=== PATIENT | female | born 1960 | race American Indian/Alaskan Native ===

== ENCOUNTER 2017-09-02 21:44 | Emergency (ER) | payer MEDICAID ==
[2017-09-02 22:03] VITALS: BMI 34.5
[2017-09-02 22:10] VITALS: TEMP 98.4
[2017-09-02] MEDS ORDERED: Oxycodone/Acetaminophen 5/325 mg Tab PO STA (22:23)
--- NOTE | 2017-09-02 22:26 | ED PDOC ---
Arrival/HPI - General Chief Complaint: Lower Extremity Problem/Injury Time Seen by Provider: 09/02/17 22:21 Historian: Patient - History of Present Illness Narrative History of Present Illness (Text): 09/02/17 22:25 56 year old female, post menopausal, pmh including htn, nkda, complaining of lt. foot swelling x 3 days with no fall or trauma. Aching pain, aggravated by touching, no calf pain, no thigh pain, no fever or chills, no palpitation, no rash, no other medical or psychological complaints. Past Medical History - Provider Review Nursing Documentation Reviewed: Yes - Infectious Disease Hx of Infectious Diseases: None - Cardiac Hx Cardiac Disorders: Yes Hx Hypertension: Yes - Pulmonary Hx Respiratory Disorders: Yes Hx Asthma: Yes Hx Pneumonia: Yes Other/Comment: Smoking - Neurological Hx Neurological Disorder: No - HEENT Hx HEENT Disorder: No - Renal Hx Renal Disorder: No - Endocrine/Metabolic Hx Endocrine Disorders: No - Hematological/Oncological Hx Blood Disorders: Yes Hx Hepatitis C: Yes - Integumentary Hx Dermatological Disorder: No - Musculoskeletal/Rheumatological Hx Musculoskeletal Disorders: No Hx Falls: No - Gastrointestinal Hx Gastrointestinal Disorders: No - Genitourinary/Gynecological Hx Genitourinary Disorders: No - Psychiatric Hx Psychophysiologic Disorder: No Hx Substance Use: No - Surgical History Hx Section: Yes Other/Comment: skin graft r shoulder as a child - Anesthesia Hx Anesthesia: Yes Hx Anesthesia Reactions: No Hx Malignant Hyperthermia: No - Suicidal Assessment Feels Threatened In Home Enviroment: No Family/Social History - Physician Review Nursing Documentation Reviewed: Yes Family/Social History: Unknown Family HX Smoking Status: Heavy Smoker > 10 Cigarettes Daily Hx Alcohol Use: No Hx Substance Use: No Allergies/Home Meds Allergies/Adverse Reactions: Allergies No Known Allergies Allergy (Verified 07/09/16 08:29) Home Medications: Home Meds Medication Instructions Recorded Confirmed amLODIPine [Norvasc] 5 mg PO DAILY 12/23/15 07/09/16 Review of Systems - Review of Systems Constitutional: absent: Fatigue, Fevers Eyes: absent: Vision Changes ENT: absent: Hearing Changes Respiratory: absent: SOB, Cough Cardiovascular: absent: Chest Pain Gastrointestinal: absent: Abdominal Pain, Nausea, Vomiting Musculoskeletal: Arthralgias, Myalgias. absent: Back Pain, Neck Pain, Joint Swelling Skin: absent: Rash, Pruritis Neurological: absent: Headache, Dizziness Psychiatric: absent: Anxiety, Depression, Suicidal Ideation Physical Exam Vital Signs Reviewed: Yes Vital Signs Temp Pulse Resp BP Pulse Ox 09/02/17 23:40 88 16 148/82 99 09/02/17 22:03 98.4 F 70 18 152/95 H 96 Temperature: Afebrile Blood Pressure: Hypertensive Pulse: Regular Respiratory Rate: Normal Appearance: Positive for: Well-Appearing, Non-Toxic, Comfortable Pain Distress: Moderate Mental Status: Positive for: Alert and Oriented X 3 - Systems Exam Head: Present: Atraumatic, Normocephalic Pupils: Present: PERRL Extroacular Muscles: Present: EOMI Conjunctiva: Present: Normal Mouth: Present: Moist Mucous Membranes Neck: Present: Normal Range of Motion Respiratory/Chest: Present: Clear to Auscultation, Good Air Exchange. No: Respiratory Distress, Accessory Muscle Use Cardiovascular: Present: Regular Rate and Rhythm, Normal S1, S2. No: Murmurs Abdomen: No: Tenderness, Distention, Peritoneal Signs, Rebound, Guarding Back: Present: Normal Inspection Upper Extremity: Present: Normal Inspection. No: Cyanosis, Edema Lower Extremity: Present: Normal Inspection, Other (Lt. foot: +ttp and mild swelling on the dorsum foot extensor tendon regin, no ankle tenderness, negative marjorie and ledesma signs, FROM without limtiation, sensation intact, motor 5/5, +DPPT pulses, capillary refill<2 seconds, neurovascular intact. ). No: Edema Neurological: Present: GCS=15, CN II-XII Intact, Speech Normal Skin: Present: Warm, Dry, Normal Color. No: Rashes Psychiatric: Present: Alert, Oriented x 3, Normal Insight, Normal Concentration Medical Decision Making ED Course and Treatment: 09/02/17 22:27 -labs -lt. foot xray -motrin 09/02/17 23:11 -Labs are non-significant -Lt. foot xray show -Pt. feels -Discharge home with naproxen, crutches, jignesh wrap, avoid putting on the shoe for 7 days, follow up with your own pmd and inspector fuel hose within 2 days, return to the ER for any new or worsening signs or symptoms. - Lab Interpretations Lab Results: 09/02/17 22:42 09/02/17 22:42 Lab Results 09/02/17 22:42: WBC 10.7 D, RBC 4.66, Hgb 11.2 L, Hct 34.1 L, MCV 73.2 L, MCH 24.0 L, MCHC 32.8, RDW 14.2, Plt Count 280, MPV 9.8, Gran % 46.8 L, Lymph % ( Auto) 41.2 H, [place] % (Auto) 7.5 H, Eos % (Auto) 3.7, Baso % (Auto) 0.8, Gran # 5.00, Lymph # (Auto) 4.4 H, [place] # (Auto) 0.8 H, Eos # (Auto) 0.4, Baso # (Auto ) 0.09 09/02/17 22:42: Sodium 140, Potassium 3.7, Chloride 104, Carbon Dioxide 28, Anion Gap 12, BUN 17, Creatinine 0.9, Est GFR ( Amer) > 60, Est GFR (Non- Af Amer) > 60, Random Glucose 97, Uric Acid 3.9, Calcium 9.7, Total Bilirubin 0.4, AST 22, ALT 22, Alkaline Phosphatase 68, Total Protein 7.4, Albumin 4.0, Globulin 3.4, Albumin/Globulin Ratio 1.2 - RAD Interpretation Radiology Orders: 09/02/17 22:22 FOOT LEFT 3 VIEWS ROUTINE [RAD] Stat Bones/joints: There is no acute fracture or dislocation of the left foot. Osteopenia. A small calcaneal spur is visualized. Soft tissues: There is mild soft tissue swelling of the dorsum of the foot. IMPRESSION: 1. There is no acute fracture or dislocation of the left foot. 2. There is mild soft tissue swelling of the dorsum of the foot. If there is a clinical concern for infection, MRI is suggested. Thank you for allowing us to participate in the care of your patient. Dictated and Authenticated by: Ricky Cordoba MD 09/02/2017 11:48 PM Eastern Time ([place] & [place]) Account Planner: Radiologist - Medication Orders Current Medication Orders: Discontinued Medications Ibuprofen (Motrin Tab) 600 mg PO STAT STA Stop: 09/02/17 22:24 Last Admin: 09/02/17 22:37 Dose: 600 mg MAR Pain/Vitals Document 09/02/17 22:37 MS (Rec: 09/02/17 22:38 MS [id number]) Pain Reassessment Is This A Pain ReAssessment? No Sleep Is patient sleeping during reassessment? No Presence of Pain Presence of Pain Yes Pain Scale Used Pain Scale Used Numeric Location Left, Right or Bilateral Left Pain Location Body Site Foot Description Intermittent Intensity 7 Scale Used Numeric Oxycodone/Acetaminophen (Percocet 5/325 Mg Tab) 1 tab PO STAT STA Stop: 09/02/17 22:24 Last Admin: 09/02/17 22:31 Dose: 1 tab MAR Pain Assessment Document 09/02/17 22:31 MS (Rec: 09/02/17 22:37 MS [id number]) Pain Reassessment Is this a pain reassessment? No Sleep Is patient sleeping during reassessment? No Presence of Pain Presence of Pain Yes Pain Scale Used Pain Scale Used Numeric Location Left, Right or Bilateral Left Pain Location Body Site Foot Description Description Intermittent Intensity of Pain at present 7 - PA / [employer] / Resident Statement MD/DO has reviewed & agrees with the documentation as recorded. Disposition/Present on Arrival - Present on Arrival Any Indicators Present on Arrival: No History of DVT/PE: No History of Uncontrolled Diabetes: No Urinary Catheter: No History of Decub. Ulcer: No History Surgical Site Infection Following: None - Disposition Have Diagnosis and Disposition been Completed?: Yes Diagnosis: Foot pain, Tendinitis Disposition: HOME/ ROUTINE Disposition Time: 22:28 Patient Plan: Discharge Condition: IMPROVED Discharge Instructions (ExitCare): Tendonitis (DC) Additional Instructions: -Discharge home with naproxen, crutches, jignesh wrap, avoid putting on the shoe for 7 days, follow up with your own pmd and inspector fuel hose within 2 days, return to the ER for any new or worsening signs or symptoms. Prescriptions: Naproxen 500 mg PO BID PRN #28 tablet PRN Reason: Other Referrals: Michael Monroe Jr., MD [Primary Care Provider] - Follow up with primary Eric Patton DPM [Staff Provider] - Follow up with primary Forms: WORK NOTE
[2017-09-02 22:59] LABS: BASO # 0.09 K/mm3 (0.0-2.0); BASO % 0.8 % (0.0-3.0); EOS # 0.4 (0.0-0.7); EOS % 3.7 % (1.5-5.0); GRAN % 46.8 % (50.0-68.0); HEMOGLOBIN 11.2 g/dL (12.0-16.0); LYMPH # 4.4 (1.2-3.4); LYMPH % 41.2 % (22.0-35.0); MEAN CELL VOLUME 73.2 fl (80.0-105.0); MEAN CORPUSCULAR HGB CONC 32.8 g/dl (31.0-37.0); MEAN PLATELET VOLUME 9.8 fl (7.0-11.0); MONO # 0.8 (0.1-0.6); MONO % 7.5 % (1.0-6.0); RBC 4.66 10^6/uL (3.5-6.1); RED CELL DISTRIBUTION WIDTH 14.2 % (11.5-14.5); WHITE BLOOD COUNT 10.7 10^3/ul (4.5-11.0)
[2017-09-02 23:10] LABS: ALB/GLOB RATIO 1.2 (1.1-1.8); ALT/SGPT 22 U/L (7-56); AST/SGOT 22 U/L (14-36); BLOOD UREA NITROGEN 17 mg/dL (7-21); CALCIUM 9.7 mg/dL (8.4-10.5); GFR AFRICAN-AMERICAN > 60; GFR NON-AFRICAN AMERICAN > 60; URIC ACID 3.9 mg/dL (2.5-6.2)
[2017-09-02 23:41] VITALS: BP 148/82; PULSE 88; RESP 16; O2SAT 99
--- NOTE | 2017-09-02 23:48 | RAD ---
EXAM: XR Left Foot Complete, 3 or More Views EXAM DATE/TIME: 09/02/2017 10:22 PM CLINICAL HISTORY: The patient age is 56 years old and is female; Signs and symptoms; Swelling, leg or foot; Additional info: Lt. Foot swelling and pain Facility exam id and description: Rad footl foot left 3 views routine TECHNIQUE: Frontal, lateral and oblique views of the left foot. COMPARISON: No relevant prior studies available. FINDINGS: Bones/joints: There is no acute fracture or dislocation of the left foot. Osteopenia. A small calcaneal spur is visualized. Soft tissues: There is mild soft tissue swelling of the dorsum of the foot. IMPRESSION: 1. There is no acute fracture or dislocation of the left foot. 2. There is mild soft tissue swelling of the dorsum of the foot. If there is a clinical concern for infection, MRI is suggested.
== END 2017-09-02 23:40 | disposition home or self-care (01) ==
LOC: ED 21:44
DX: M79.672 Pain in left foot (principal); M77.8 Other enthesopathies, not elsewhere classified; I10 Essential (primary) hypertension; F17.210 Nicotine dependence, cigarettes, uncomplicated

== ENCOUNTER 2017-10-12 16:48 | Emergency (ER) | payer MEDICAID ==
[2017-10-12 16:52] VITALS: RESP 18; BMI 30.2
--- NOTE | 2017-10-12 17:13 | ED PDOC ---
Arrival/HPI - General Time Seen by Provider: 10/12/17 17:07 Historian: Patient - History of Present Illness Narrative History of Present Illness (Text): 10/12/17 17:12 This 56 yo female with pmh HTN, non-compliant to medication, presents to this ED c/o cough, nasal congestion, feeling "dehydrated", malaise, left ear pain x 4 days. Patient denies fever, sob, cp, abdominal pain, urinary symptoms, recent travel, recent surgery, recent trauma, dizziness, or abnormal gait. Time/Duration: Other (see hpi) Context: Home Past Medical History - Provider Review Nursing Documentation Reviewed: Yes - Infectious Disease Hx of Infectious Diseases: None - Cardiac Hx Cardiac Disorders: Yes Hx Hypertension: Yes - Pulmonary Hx Respiratory Disorders: Yes Hx Asthma: Yes Hx Pneumonia: Yes Other/Comment: Smoking - Neurological Hx Neurological Disorder: No - HEENT Hx HEENT Disorder: No - Renal Hx Renal Disorder: No - Endocrine/Metabolic Hx Endocrine Disorders: No - Hematological/Oncological Hx Blood Disorders: Yes Hx Hepatitis C: Yes - Integumentary Hx Dermatological Disorder: No - Musculoskeletal/Rheumatological Hx Musculoskeletal Disorders: No Hx Falls: No - Gastrointestinal Hx Gastrointestinal Disorders: No - Genitourinary/Gynecological Hx Genitourinary Disorders: No - Psychiatric Hx Psychophysiologic Disorder: No Hx Substance Use: No - Surgical History Hx Section: Yes Other/Comment: skin graft r shoulder as a child - Anesthesia Hx Anesthesia: Yes Hx Anesthesia Reactions: No Hx Malignant Hyperthermia: No - Suicidal Assessment Feels Threatened In Home Enviroment: No Family/Social History - Physician Review Nursing Documentation Reviewed: Yes Family/Social History: Other (noncontributory) Smoking Status: Heavy Smoker > 10 Cigarettes Daily Hx Alcohol Use: No Hx Substance Use: No Allergies/Home Meds Allergies/Adverse Reactions: Allergies No Known Allergies Allergy (Verified 10/12/17 17:02) Review of Systems - Review of Systems Constitutional: Other (malaise). absent: Fatigue, Weight Change, Fevers Eyes: Normal ENT: Rhinorrhea, Sinus Congestion, Other (left earpain). absent: Sore Throat Respiratory: Cough. absent: SOB, Sputum, Wheezing Cardiovascular: Normal. absent: Chest Pain, Palpitations Gastrointestinal: Normal. absent: Abdominal Pain, Nausea, Vomiting Genitourinary Female: Normal. absent: Dysuria, Frequency, Hematuria Musculoskeletal: Normal Skin: Normal. absent: Rash Neurological: Normal. absent: Headache, Dizziness, Focal Weakness, Gait Changes , Speech Changes, Facial Droop, Disequilibrium Endocrine: Normal Hemo/Lymphatic: Normal Psychiatric: Normal Physical Exam Vital Signs Temp Pulse Resp BP Pulse Ox 10/12/17 20:22 60 18 170/95 H 98 10/12/17 16:50 98.4 F 65 18 164/99 H 98 Temperature: Afebrile Blood Pressure: Hypertensive Pulse: Regular Respiratory Rate: Normal Appearance: Positive for: Well-Appearing, Non-Toxic, Comfortable Pain Distress: None Mental Status: Positive for: Alert and Oriented X 3 - Systems Exam Head: Present: Atraumatic, Normocephalic Pupils: Present: PERRL Extroacular Muscles: Present: EOMI Conjunctiva: Present: Normal Ears: Present: Normal, NORMAL TM, Normal Canal. No: Erythema, TM Bulging, Fluid , TM Perf Mouth: Present: Moist Mucous Membranes, Normal Lips, Normal Tounge. No: Drooling, Trismus Pharnyx: Present: Normal. No: ERYTHEMA, EXUDATE, TONSILS ENLARGED, Peritonsilar Swelling, Uvular Deviation, Muffled/Hoarse Voice, [place], Soft Palate/Uvular Edema Nose (External): Present: Atraumatic Nose (Internal): Present: Rhinorrhea. No: Edematous, Purulent Mucous Neck: Present: Normal Range of Motion, Trachea Midline. No: Meningeal Signs, MIDLINE TENDERNESS, Lymphadenopathy Respiratory/Chest: Present: Clear to Auscultation, Good Air Exchange. No: Respiratory Distress, Accessory Muscle Use, Wheezes, Retracting, Rhonchi Cardiovascular: Present: Regular Rate and Rhythm, Normal S1, S2. No: Murmurs Abdomen: No: Tenderness, Distention, Peritoneal Signs Back: Present: Normal Inspection. No: CVA Tenderness Upper Extremity: Present: Normal Inspection, Normal ROM, NORMAL PULSES, Neurovascularly Intact, Capillary Refill < 2s. No: Cyanosis, Edema Lower Extremity: Present: Normal Inspection, NORMAL PULSES, Normal ROM, Neurovascularly Intact, Capillary Refill < 2 s. No: Edema Neurological: Present: GCS=15, CN II-XII Intact, Speech Normal, Motor Func Grossly Intact, Normal Sensory Function, Normal Cerebellar Funct, Gait Normal, Memory Normal Skin: Present: Warm, Dry, Normal Color. No: Rashes Psychiatric: Present: Alert, Oriented x 3, Normal Insight, Normal Concentration Medical Decision Making ED Course and Treatment: 10/12/17 22:50 Re-evaluation. Patient feels better. Discussed results and plan with patient who expresses understanding. All questions answered and there is agreement with the plan to discharge home with instructions. Patient stable for discharge. Return if symptoms persist or worsen. Re-evaluation Time: 22:50 Reassessment Condition: Re-examined, Improved - Lab Interpretations Lab Results: 10/12/17 18:10 10/12/17 18:10 Lab Results 10/12/17 18:22: Urine Color Yellow, Urine Appearance Clear, Urine pH 6.0, Ur Specific [place] 1.020, Urine Protein Negative, Urine Glucose (UA) Negative, Urine Ketones Trace H, Urine Blood Trace-intact H, Urine Nitrate Negative, Urine Bilirubin Negative, Urine Urobilinogen 1.0 H, Ur Leukocyte Esterase Negative, Urine RBC 5 - 10, Urine WBC 5 - 10, Ur Epithelial Cells 6 - 8, Urine Bacteria Mod 10/12/17 18:10: Sodium 145, Potassium 3.9, Chloride 106, Carbon Dioxide 27, Anion Gap 16, BUN 7, Creatinine 0.8, Est GFR ( Amer) > 60, Est GFR (Non- Af Amer) > 60, Random Glucose 94, Calcium 9.4, Total Bilirubin 0.5, AST 30, ALT 24, Alkaline Phosphatase 75, Total Protein 8.1, Albumin 4.5, Globulin 3.6, Albumin/Globulin Ratio 1.2 10/12/17 18:10: WBC 6.0 D, RBC 5.10, Hgb 12.2, Hct 37.1, MCV 72.7 L, MCH 23.9 L , MCHC 32.9, RDW 14.2, Plt Count 272, MPV 10.3, Gran % 29.9 L, Lymph % (Auto) 52.7 H, [place] % (Auto) 10.3 H, Eos % (Auto) 5.1 H, Baso % (Auto) 2.0, Gran # 1.80 , Lymph # (Auto) 3.2, [place] # (Auto) 0.6, Eos # (Auto) 0.3, Baso # (Auto) 0.12 I have reviewed the lab results: Yes Interpretation: No clinic. lab abnormalty - RAD Interpretation Narrative RAD Interpretations (Text): 10/12/17 22:51 FINDINGS: No aortic aneurysm. No pleural or pericardial effussions. There is bronchiectasis in the anterior medial right upper lobe similar to prior. There are groundglass opacities bilaterally that are a nonspecific finding and similar to prior suggesting chronicity, less likely could also be indicative of developing infectious/inflammatory process or developing edema. No focal infiltrates are identified. On image 42, there is suggestion of a very faint 3 mm nodule (image 34 prior ) in the right lung along the fissure. The 2 year stability suggest benignity. Again seen are small anterior osteophytes and areas of sclerosis in the T8 and T9 vertebrae. IMPRESSION: Findings similar to prior study including right midlung bronchiectasis, scattered groundglass opacities bilaterally, faint 3 mm right lung nodule, sclerosis T8-T9 vertebra. Radiology Orders: 10/12/17 17:15 CHEST PORTABLE [RAD] Stat 10/12/17 19:36 CHEST W/O CONTRAST [CT] Stat - Medication Orders Current Medication Orders: Discontinued Medications Sodium Chloride (Sodium Chloride 0.9%) 500 mls @ 999 mls/hr IV .Q31M STA Stop: 10/12/17 17:44 Last Admin: 10/12/17 17:45 Dose: 999 mls/hr eMAR Start Stop Document 10/12/17 17:45 LA (Rec: 10/12/17 17:46 LA [id number]) Intravenous Solution Start Date 10/12/17 Start Time 17:45 End Date 10/12/17 End time 18:17 Total Infusion Time 32 Meclizine HCl (Antivert) 50 mg PO STAT STA Stop: 10/12/17 17:15 Last Admin: 10/12/17 17:45 Dose: 50 mg Disposition/Present on Arrival - Present on Arrival Any Indicators Present on Arrival: No History of DVT/PE: No History of Uncontrolled Diabetes: No Urinary Catheter: No History Surgical Site Infection Following: None - Disposition Have Diagnosis and Disposition been Completed?: Yes Diagnosis: Cough, Bronchitis Disposition: HOME/ ROUTINE Disposition Time: 22:51 Patient Plan: Discharge Patient Problems: Current Active Problems Problem Status Onset Bronchitis Acute Cough Acute Condition: IMPROVED Discharge Instructions (ExitCare): Acute Bronchitis Additional Instructions: Call private doctor for follow up visit in 1-2 days. Take medication as instructed with food. return to emergency if symptoms worsen. Do not drive or operate machinery for at least 12 hours if you take cough medication. Prescriptions: Azithromycin [Z-Cirilo] 250 mg PO DAILY #6 tab Promethazine/Dextromethorphan [Promethazine-Dm Syrup] 5 ml PO Q4 PRN #120 ml PRN Reason: Cough And Congestion Referrals: Oly Jorgensen MD [Primary Care Provider] - Follow up with primary
[2017-10-12] MEDS ORDERED: Sodium Chloride 0.9% 500 ML IV STA (17:14)
[2017-10-12 18:27] LABS: BASO # 0.12 K/mm3 (0.0-2.0); EOS # 0.3 (0.0-0.7); EOS % 5.1 % (1.5-5.0); GRAN # 1.8 (1.4-6.5); GRAN % 29.9 % (50.0-68.0); HEMOGLOBIN 12.2 g/dL (12.0-16.0); LYMPH # 3.2 (1.2-3.4); LYMPH % 52.7 % (22.0-35.0); MEAN CELL VOLUME 72.7 fl (80.0-105.0); MEAN CORPUSCULAR HEMOGLOBIN 23.9 pg (25.0-35.0); MEAN CORPUSCULAR HGB CONC 32.9 g/dl (31.0-37.0); MEAN PLATELET VOLUME 10.3 fl (7.0-11.0); MONO # 0.6 (0.1-0.6); MONO % 10.3 % (1.0-6.0); RBC 5.1 10^6/uL (3.5-6.1); RED CELL DISTRIBUTION WIDTH 14.2 % (11.5-14.5)
[2017-10-12 18:30] LABS: URINE BILIRUBIN NEGATIVE (NEGATIVE); URINE BLOOD TRACE-INTACT (NEGATIVE); URINE GLUCOSE (UA) NEGATIVE (NEGATIVE); URINE LEUKOCYTE ESTERASE NEGATIVE Leu/uL (NEGATIVE); URINE PROTEIN NEGATIVE mg/dL (<30 mg/dL)
[2017-10-12 18:33] LABS: URINE APPEARANCE CLEAR (CLEAR); URINE COLOR YELLOW (YELLOW)
[2017-10-12 18:44] LABS: URINE BACTERIA MOD (NEG)
[2017-10-12 18:48] LABS: ALB/GLOB RATIO 1.2 (1.1-1.8); ALBUMIN 4.5 g/dL (3.0-4.8); ALT/SGPT 24 U/L (7-56); AST/SGOT 30 U/L (14-36); BLOOD UREA NITROGEN 7 mg/dL (7-21); CALCIUM 9.4 mg/dL (8.4-10.5); GFR AFRICAN-AMERICAN > 60; GFR NON-AFRICAN AMERICAN > 60
[2017-10-12 20:23] VITALS: PULSE 60
--- NOTE | 2017-10-12 22:30 | CT ---
EXAM: CT Chest Without Intravenous Contrast EXAM DATE/TIME: 10/12/2017 7:36 PM CLINICAL HISTORY: 56 years old, female; Abnormal findings; Abnormal radiologic exam of lung or chest; Additional info: Cough abnormal cxr TECHNIQUE: Axial computed tomography images of the chest without intravenous contrast. All CT scans at this facility use one or more dose reduction techniques, viz.: automated exposure control; ma/kV adjustment per patient size (including targeted exams where dose is matched to indication; i.e. head); or iterative reconstruction technique. Coronal and sagittal reformatted images were created and reviewed. COMPARISON: CT - ANGIO CHEST PE PROTOCOL 2016-03-23 11:42 FINDINGS: No aortic aneurysm. No pleural or pericardial effussions. There is bronchiectasis in the anterior medial right upper lobe similar to prior. There are groundglass opacities bilaterally that are a nonspecific finding and similar to prior suggesting chronicity, less likely could also be indicative of developing infectious/inflammatory process or developing edema. No focal infiltrates are identified. On image 42, there is suggestion of a very faint 3 mm nodule (image 34 prior) in the right lung along the fissure. The 2 year stability suggest benignity. Again seen are small anterior osteophytes and areas of sclerosis in the T8 and T9 vertebrae. IMPRESSION: Findings similar to prior study including right midlung bronchiectasis, scattered groundglass opacities bilaterally, faint 3 mm right lung nodule, sclerosis T8-T9 vertebra.
[2017-10-12 23:09] VITALS: BP 155/60; TEMP 98; O2SAT 100
--- NOTE | 2017-10-13 07:37 | RAD ---
HISTORY: cough and congestion COMPARISON: 04/17/2016 FINDINGS: LUNGS: There is peribronchial thickening and mild vascular congestion. No evidence of pneumonia PLEURA: No significant pleural effusion identified, no pneumothorax apparent. CARDIOVASCULAR: Normal. OSSEOUS STRUCTURES: No significant abnormalities. VISUALIZED UPPER ABDOMEN: Normal. OTHER FINDINGS: None. IMPRESSION: There is peribronchial thickening and mild vascular congestion. No evidence of pneumonia
== END 2017-10-12 23:07 | disposition home or self-care (01) ==
LOC: ED 16:48
DX: J40 Bronchitis, not specified as acute or chronic (principal); R05 Cough; F17.210 Nicotine dependence, cigarettes, uncomplicated; I10 Essential (primary) hypertension
CPT/HCPCS: 71045; 71250; 80053; 81001; 85025; 87086; 96360; 99283; J7040

== ENCOUNTER 2017-10-17 19:13 | Emergency (ER) | payer MEDICAID ==
[2017-10-17 19:43] VITALS: BMI 29.2
[2017-10-17 20:02] VITALS: PULSE 68; RESP 18; TEMP 98.6
[2017-10-17] MEDS ORDERED: Oxycodone/Acetaminophen 5/325 mg Tab PO STA (20:03)
--- NOTE | 2017-10-17 20:07 | ED PDOC ---
Arrival/HPI - General Chief Complaint: Dental Pain Time Seen by Provider: 10/17/17 20:03 Historian: Patient - History of Present Illness Narrative History of Present Illness (Text): 10/17/17 20:07 pt p/w + 4 days onset of left lower jaw/tooth pain with mild left facial swelling; pt states similar dental pain were noted in the past; pt is due to have her lower tooth removed soon but pt is concern that the number of dental extractions will cause her complications and patient is unsure when she will have her tooth removed; pt states no fever/sweats, ? chills, no cp/sob/ palpitations, no abd pain, no n/v, no numbness/tingling, no urinary/bowel changes, no fall/trauma/sick contact, no travel; pt denied other complaints pt is here for further eval. PCP: Dr Jorgensen dental: dr Whelan Time/Duration: < week (4 days) Symptom Onset: Sudden Symptom Course: Worsening Quality: Throbbing Severity Level: Severe Activities at Onset: Rest Context: Home Past Medical History - Provider Review Nursing Documentation Reviewed: Yes - Travel History Have you recently traveled outside [place] w/in the past 3 mons?: No - Past History Past History: No Previous - Infectious Disease Hx of Infectious Diseases: None - Tetanus Immunization Tetanus Immunization: Unknown - Reproductive Menopause: Yes Currently : No - Cardiac Hx Cardiac Disorders: Yes Hx Hypertension: Yes - Pulmonary Hx Respiratory Disorders: Yes Hx Asthma: Yes Hx Pneumonia: Yes Other/Comment: Smoking - Neurological Hx Neurological Disorder: No - HEENT Hx HEENT Disorder: No - Renal Hx Renal Disorder: No - Endocrine/Metabolic Hx Endocrine Disorders: No - Hematological/Oncological Hx Blood Disorders: Yes Hx Hepatitis C: Yes - Integumentary Hx Dermatological Disorder: No - Musculoskeletal/Rheumatological Hx Musculoskeletal Disorders: No Hx Falls: No - Gastrointestinal Hx Gastrointestinal Disorders: No - Genitourinary/Gynecological Hx Genitourinary Disorders: No - Psychiatric Hx Psychophysiologic Disorder: No Hx Substance Use: No - Surgical History Hx Section: Yes Other/Comment: skin graft r shoulder as a child - Anesthesia Hx Anesthesia: Yes Hx Anesthesia Reactions: No Hx Malignant Hyperthermia: No - Suicidal Assessment Feels Threatened In Home Enviroment: No Family/Social History - Physician Review Nursing Documentation Reviewed: Yes Family/Social History: No Known Family HX Smoking Status: Heavy Smoker > 10 Cigarettes Daily Hx Alcohol Use: No Hx Substance Use: No Hx Substance Use Treatment: No Allergies/Home Meds Allergies/Adverse Reactions: Allergies No Known Allergies Allergy (Verified 10/12/17 17:02) Review of Systems - Review of Systems Constitutional: Normal Eyes: Normal ENT: Other (dental pain). absent: Rhinorrhea Respiratory: Normal. absent: SOB Cardiovascular: Normal. absent: Chest Pain Gastrointestinal: Normal. absent: Abdominal Pain, Nausea, Vomiting Genitourinary Female: Normal. absent: Dysuria Musculoskeletal: Normal Skin: Normal. absent: Rash Neurological: Normal. absent: Headache Endocrine: Normal Hemo/Lymphatic: Normal Psychiatric: Normal Physical Exam - Physical Exam Narrative Physical Exam (Text): 10/17/172004 General: alert/awake, GCS = 15, oriented x 3, resting in bed, uncomfortable, cooperative, interactive Head: NC/AT EYE: PERRLA, EOMI, sclera anicteric, no nystagmus, no photophobia Facial: WNL; no gross swelling/edema noted, + left lower mid jaw region tenderness/no crepitus/induration/fluctuance palpable Oral: uvula/tongue are midline, no exudate/lesions, no drooling/stridor, no dysphonia; poor dentitions, + multiple dental caries are noted; dental #35/45 with severe decay is noted, + tenderness noted at the base of #35, no gum fluctuance/skin induration noted, no expressible discharge/pus/blood is noted; no FB/masses/lesions noted NECK: intact ROM, no midline tenderness, no nuchal rigidity, no meningeal signs ; no step off Chest: CTA b/l, no w/r/r; no tachypenia, no accessory muscle use noted Cardiac: +S1, +S2, no m/r/r, no tachycardia Abdominal: +BS, soft/nd/nt, well nourished patient; no masses/rebound/guarding/ rigidity; no dee's sign, no mcburney's point tenderness Extremities: intact ROM, strength 5/5 grossly intact in all limbs, neurovasc intact b/l; + ambulatory; reflex +2/2 BACK: no step off, no midline tenderness, NO crepitus, no gross deformities noted; Intact ROM SKIN: cap refill < 1 sec, no ulcerations, no petechiae, no rashes NEURO: CNII-XII WNL, no facial asymmetries, no slurr speech, oriented x 3 Psych: normal insight, normal affect; follows command with ease Vital Signs Reviewed: Yes Vital Signs Temp Pulse Resp BP Pulse Ox 10/17/17 20:01 98.6 F 68 18 132/80 96 Temperature: Afebrile Blood Pressure: Normal Pulse: Regular Respiratory Rate: Normal Appearance: Positive for: Well-Appearing, Non-Toxic, Uncomfortable, Other (alert /awake, GCS = 15, oriented x 3, uncomfortable, mild distress due to pain, resting in bed) Pain Distress: Mild Mental Status: Positive for: Alert and Oriented X 3 - Systems Exam Head: Present: Atraumatic, Normocephalic Medical Decision Making ED Course and Treatment: 10/17/17 20:10 Impression: left dental pain (acute on chronic) i have consider all the differential diagnosis regarding pt's chief medical complaints/clinical findings, including but are not limited to: left dental pain A/P: left dental pain - supportive care - observe/reevaluation 10/17/17 21:00 after medications, pt felt improved, pt states her pain is ~ 5/10 pt is made aware of her medical results pt is encouraged ice to left jaw for comfort pt is encouraged smoking cessation pt will f/u as directed pt will be discharged home Re-evaluation Time: 21:00 Reassessment Condition: Improving,but remains with symptoms - Medication Orders Current Medication Orders: Discontinued Medications Ibuprofen (Motrin Tab) 400 mg PO STAT STA Stop: 10/17/17 20:04 Last Admin: 10/17/17 20:22 Dose: 400 mg Lidocaine HCl (Lidocaine 2% Viscous) 15 ml MM STAT STA Stop: 10/17/17 20:05 Last Admin: 10/17/17 20:22 Dose: 15 ml Oxycodone/Acetaminophen (Percocet 5/325 Mg Tab) 1 tab PO STAT STA Stop: 10/17/17 20:04 Last Admin: 10/17/17 20:22 Dose: 1 tab MAR Pain Assessment Document 10/17/17 20:22 AD (Rec: 10/17/17 20:22 AD [id number] Pain Reassessment Is this a pain reassessment? No Penicillin V Potassium (Penicillin Vk Tab) 500 mg PO STAT STA PRN Reason: Protocol Stop: 10/17/17 20:04 Last Admin: 10/17/17 20:22 Dose: 500 mg Disposition/Present on Arrival - Present on Arrival Any Indicators Present on Arrival: No History of DVT/PE: No History of Uncontrolled Diabetes: No Urinary Catheter: No History of Decub. Ulcer: No History Surgical Site Infection Following: None - Disposition Have Diagnosis and Disposition been Completed?: Yes Diagnosis: Dental caries, Pain, dental, Dental infection Disposition: HOME/ ROUTINE Disposition Time: 20:55 Patient Plan: Discharge Condition: STABLE Discharge Instructions (ExitCare): Tooth Abscess (DC), Dental Pain Print Language: SLOVENIAN Additional Instructions: Make sure to see your doctor in 1-2 days YOU NEED TO SEE YOUR DENTISTS as soon as possible DRINK PLENTY OF FLUIDS take your medications as prescribed STOP SMOKING RETURN TO ED IF worse pain, cant breath, drooling/facial swelling, persistent vomiting, high fever >101-102 for hours, altered behavior, slurr speech, facial changes, focal weakness (arm/leg or both), unable to urinate, heavy/persistent bleeding, passing out, chest pain, or other medical emergencies Prescriptions: Ibuprofen [Motrin] 400 mg PO QID PRN #30 tab PRN Reason: Pain, Mild (1-3) Lidocaine 2% Viscous 15 ml MM TID PRN #100 ml PRN Reason: pain oxyCODONE/Acetaminophen [Percocet 5/325 mg Tab] 1 tab PO TID PRN #10 tab PRN Reason: Pain, Moderate (4-7) Penicillin VK [Penicillin VK Tab] 500 mg PO Q6 #27 tab Referrals: Oly Jorgensen MD [Primary Care Provider] - Follow up with primary Forms: [employer] (Latvian), [employer] (Romansh)
[2017-10-17 21:11] VITALS: BP 128/75; O2SAT 100
== END 2017-10-17 21:11 | disposition home or self-care (01) ==
LOC: ED 19:13
DX: K02.9 Dental caries, unspecified (principal); K04.7 Periapical abscess without sinus

== ENCOUNTER 2018-09-26 08:17 | Inpatient (IN) | payer MEDICAID ==
--- NOTE | 2018-09-26 09:51 | ED PDOC ---
Arrival/HPI - General Chief Complaint: Cough, Cold, Congestion Time Seen by Provider: 09/26/18 09:10 Historian: Patient - History of Present Illness Narrative History of Present Illness (Text): 09/26/18 09:48 57-year-old female presents today with cough, hemoptysis, fevers, night sweats, fatigue. Patient states she has been coughing regularly every morning and today noticed that she was coughing up bright red blood. Patient states she has been having productive cough with a white-yellowish sputum. No nasal congestion or sore throat. Patient states she has profuse night sweats that wakes her up from sleep with chills. Patient states she is feeling generally fatigued. She denies shortness of breath at present time but states she has been having some pain in the left arm for which she saw her doctor and was told it was arthritis. Patient states she has a history of hepatitis C which was treated. Patient denies dizziness or weakness. No abdominal pain. No nausea or vomiting. Past Medical History - Provider Review Nursing Documentation Reviewed: Yes Primary Care Physician: Oly Jorgensen MD - Travel History Have you recently traveled outside [place] w/in the past 3 mons?: No - Past History Past History: No Previous - Infectious Disease Hx of Infectious Diseases: None - Tetanus Immunization Tetanus Immunization: Unknown - Reproductive Menopause: Yes - Cardiac Hx Cardiac Disorders: Yes Hx Hypertension: Yes - Pulmonary Hx Respiratory Disorders: Yes Hx Asthma: Yes Hx Pneumonia: Yes Other/Comment: Smoking - Neurological Hx Neurological Disorder: No - HEENT Hx HEENT Disorder: No - Renal Hx Renal Disorder: No - Endocrine/Metabolic Hx Endocrine Disorders: No - Hematological/Oncological Hx Blood Disorders: Yes Hx Hepatitis C: Yes - Integumentary Hx Dermatological Disorder: No - Musculoskeletal/Rheumatological Hx Musculoskeletal Disorders: No Hx Falls: No - Gastrointestinal Hx Gastrointestinal Disorders: No - Genitourinary/Gynecological Hx Genitourinary Disorders: No - Psychiatric Hx Psychophysiologic Disorder: No Hx Substance Use: No - Surgical History Hx Section: Yes Other/Comment: skin graft r shoulder as a child - Anesthesia Hx Anesthesia: Yes Hx Anesthesia Reactions: No Hx Malignant Hyperthermia: No - Suicidal Assessment Feels Threatened In Home Enviroment: No Family/Social History - Physician Review Nursing Documentation Reviewed: Yes Family/Social History: Unknown Family HX Smoking Status: Heavy Smoker > 10 Cigarettes Daily Hx Alcohol Use: No Hx Substance Use: No Hx Substance Use Treatment: No Allergies/Home Meds Allergies/Adverse Reactions: Allergies No Known Allergies Allergy (Verified 10/12/17 17:02) Home Medications: Home Meds Medication Instructions Recorded Confirmed Unobtainable 09/26/18 09/26/18 Review of Systems - Review of Systems Constitutional: Fatigue, Night Sweats, Other (chills). absent: Fevers ENT: absent: Sore Throat Respiratory: Cough, Other (Hemoptysis). absent: SOB Cardiovascular: absent: Chest Pain, Palpitations Gastrointestinal: absent: Abdominal Pain, Nausea, Vomiting Genitourinary Female: absent: Dysuria Musculoskeletal: Arthralgias (Left arm pain) Skin: absent: Rash, Pruritis Psychiatric: absent: Anxiety, Depression Physical Exam Vital Signs Reviewed: Yes Vital Signs Temp Pulse Resp BP Pulse Ox 09/26/18 08:25 99 F 74 18 154/95 H 97 Temperature: Afebrile Blood Pressure: Hypertensive Pulse: Regular Respiratory Rate: Normal Appearance: Positive for: Well-Appearing, Non-Toxic, Comfortable Pain Distress: None Mental Status: Positive for: Alert and Oriented X 3 - Systems Exam Head: Present: Atraumatic Conjunctiva: Present: Normal Ears: Present: Normal, NORMAL TM Mouth: Present: Moist Mucous Membranes. No: Drooling, Trismus Pharnyx: Present: Normal. No: ERYTHEMA, EXUDATE, Peritonsilar Swelling, Uvular Deviation Nose (External): Present: Atraumatic Nose (Internal): Present: Normal Inspection Neck: Present: Normal Range of Motion, Trachea Midline. No: Lymphadenopathy Respiratory/Chest: Present: Clear to Auscultation, Good Air Exchange. No: Respiratory Distress, Accessory Muscle Use Cardiovascular: Present: Regular Rate and Rhythm, Normal S1, S2. No: Murmurs Abdomen: No: Tenderness Upper Extremity: Present: Normal ROM Lower Extremity: Present: Normal ROM Neurological: Present: GCS=15, Speech Normal Skin: Present: Warm, Dry, Normal Color. No: Rashes Psychiatric: Present: Alert, Oriented x 3 Medical Decision Making ED Course and Treatment: 09/26/18 09:51 57-year-old female with productive cough, hemoptysis, night sweats, chills, fatigue Dyspnea Patient was placed on airborne precautions. CBC wnl CMP wnl Blood cultures pending PT wnl PTT wnl Troponin:wnl BNP: wnl EKG: Normal sinus rhythm at 70 bpm normal axis normal intervals no ST elevations 09/26/18 13:54 ct:FINDINGS: PULMONARY ARTERIES: Unremarkable. No pulmonary embolism. AORTA: No acute findings. No thoracic aortic aneurysm. Aortic calcification LUNGS: Minimal ground-glass interstitial densities are seen which probably represent interstitial edema. There is no focal consolidation PLEURAL SPACES: Unremarkable. No effusion or pneumothorax. HEART: Unremarkable. No cardiomegaly. No significant pericardial effusion. LYMPH NODES: No lymphadenopathy. BONES, CHEST WALL: Unremarkable. No fracture or destructive lesion OTHER FINDINGS: Unremarkable. IMPRESSION: Unremarkable CT pulmonary angiogram. No pulmonary embolus. 09/26/18 14:[address] resendiz; will admit to med/surg with isolation precautions as patient with fatigue, night sweats, cough, hemoptysis left arm pain Chest x-ray shows vascular congestion CT of the chest shows groundglass interstitial densities representing interstitial edema. Impression: Cough, dyspnea Admit MedSurg - RAD Interpretation Radiology Orders: 09/26/18 09:25 CHEST PORTABLE [RAD] Stat Disposition/Present on Arrival - Present on Arrival Any Indicators Present on Arrival: No History of DVT/PE: No History of Uncontrolled Diabetes: No Urinary Catheter: No History of Decub. Ulcer: No History Surgical Site Infection Following: None - Disposition Have Diagnosis and Disposition been Completed?: Yes Diagnosis: Cough, Dyspnea Disposition: HOSPITALIZED Disposition Time: 13:00 Patient Plan: Admission Patient Problems: Current Active Problems Problem Status Onset Cough Acute Dyspnea Acute Condition: FAIR
[2018-09-26 10:04] LABS: BASO # 0.07 K/mm3 (0.0-2.0); BASO % 1.1 % (0.0-3.0); EOS # 0.3 (0.0-0.7); EOS % 5.4 % (1.5-5.0); HEMOGLOBIN 12.1 g/dL (12.0-16.0); LYMPH # 2.5 (1.2-3.4); LYMPH % 39.4 % (22.0-35.0); MEAN CELL VOLUME 74.3 fl (80.0-105.0); MEAN CORPUSCULAR HEMOGLOBIN 23.8 pg (25.0-35.0); MEAN PLATELET VOLUME 10.7 fl (7.0-11.0); MONO # 0.6 (0.1-0.6); RBC 5.09 10^6/uL (3.5-6.1); RED CELL DISTRIBUTION WIDTH 14.4 % (11.5-14.5); WHITE BLOOD COUNT 6.2 10^3/uL (4.5-11.0)
[2018-09-26 10:08] LABS: INR 1.04; PARTIAL THROMBOPLASTIN TIME 34.4 Seconds (26.9-38.3); PROTHROMBIN TIME 11.8 SECONDS (9.4-12.5)
[2018-09-26 10:15] LABS: ALB/GLOB RATIO 1.2 (1.1-1.8); ALBUMIN 4.4 g/dL (3.0-4.8); ALT/SGPT 15 U/L (7-56); AST/SGOT 31 U/L (14-36); BLOOD UREA NITROGEN 11 mg/dL (7-21); CALCIUM 9.4 mg/dL (8.4-10.5); GFR NON-AFRICAN AMERICAN > 60
[2018-09-26 10:27] LABS: TROPONIN I < 0.01 ng/mL
--- NOTE | 2018-09-26 10:36 | RAD ---
Date of service: 09/26/2018 HISTORY: cough COMPARISON: 10/12/2017 TECHNIQUE: 1 view obtained. FINDINGS: LUNGS: No active pulmonary disease. PLEURA: No significant pleural effusion identified, no pneumothorax apparent. CARDIOVASCULAR: No aortic atherosclerotic calcification present. Mild cardiomegaly. Aortic tortuosity mild vascular congestion OSSEOUS STRUCTURES: No significant abnormalities. VISUALIZED UPPER ABDOMEN: Normal. OTHER FINDINGS: None. IMPRESSION: No focal consolidation to suggest pneumonia. Mild vascular congestion
[2018-09-26] MEDS ORDERED: Iohexol 350 MG/100 ML VIAL ONE (12:17)
--- NOTE | 2018-09-26 13:51 | CT ---
Date of service: 09/26/2018 PROCEDURE: CT Chest with contrast (Pulmonary Angiogram) HISTORY: cough/hemoptysis COMPARISON: None available. TECHNIQUE: Axial computed tomography images were obtained of the chest in the pulmonary arterial phase of enhancement. Coronal and sagittal reformatted images were created and reviewed. Intravenous contrast dose: 100 cc of Omni 350 Radiation dose: Total exam DLP = 448.09 mGy-cm. This CT exam was performed using one or more of the following dose reduction techniques: Automated exposure control, adjustment of the mA and/or kV according to patient size, and/or use of iterative reconstruction technique. FINDINGS: PULMONARY ARTERIES: Unremarkable. No pulmonary embolism. AORTA: No acute findings. No thoracic aortic aneurysm. Aortic calcification LUNGS: Minimal ground-glass interstitial densities are seen which probably represent interstitial edema. There is no focal consolidation PLEURAL SPACES: Unremarkable. No effusion or pneumothorax. HEART: Unremarkable. No cardiomegaly. No significant pericardial effusion. LYMPH NODES: No lymphadenopathy. BONES, CHEST WALL: Unremarkable. No fracture or destructive lesion OTHER FINDINGS: Unremarkable. IMPRESSION: Unremarkable CT pulmonary angiogram. No pulmonary embolus.
[2018-09-26] MEDS ORDERED: Albuterol-Ipratrop 3 mg / 0.5 (3 ml) UD IH PRN (16:09)
--- NOTE | 2018-09-26 16:28 | CP.PCM.HP ---
<SejalGennaro - Last Filed: 09/26/18 16:14> History of Present Illness - History of Present Illness History of Present Illness: Gennaro Post, PGY-1, Internal Medicine History and Physical for Dr. Holloway 57 year old female with past medical history of hypertension, treated hepatitis C, and treated tuberculosis 35 years ago presents with cough with fresh blood. She reports waking up this morning and coughing to remove sputum as she does daily but today for the first time, she coughed [place] blood twice instead of sputum. However, after this episode, there was no more blood in her cough. She reports having tuberculosis 35 years ago and had been treated appropriately at that time. She follow up with a big data platform architect on [facility] but does not remember the big data platform architect's name. She has smoked 1 PPD for a "very long time". She denies any fever, chills, weight loss, headache, nausea, vomiting, abdominal pain, constipation, diarrhea, dysuria, hematuria. Patient has been admitted multiple times for recurrent pneumonia. Upon last admission for pneumonia in 2014, she was tested for TB due to night sweats which was found to be negative on AFB. Chest X ray has been unchanged from 2015. 12-point ROS was unremarkable except for what was mentioned above. PMH: treated hepatitis C, hypertension, tobacco abuse, COPD PSH: sharma during adolescence FMHx: hypertension, diabetes mellitus, CAD SHx: smokes 1 PPD for "very long time", denies alcohol or recreational drug use Allergies: NKDA PMD: Dr. Jorgensen Pharmacy: [facility] in [place] Home medications: patient reports norvasc 10 mg daily, spiriva inhaler 2 puffs daily. Pharmacy reports norvasc 5 mg daily, spiriva 18 mcg 2 puffs daily, MVI, pepcid 20 mg daily, naproxen, and voltaren gel Present on Admission - Present on Admission Any Indicators Present on Admission: No Review of Systems - Review of Systems Review of Systems: except for what was mentioned in HPI Past Patient History - Infectious Disease Hx of Infectious Diseases: None - Tetanus Immunizations Tetanus Immunization: Unknown - Past Social History Smoking Status: Heavy Smoker > 10 Cigarettes Daily - CARDIAC Hx Cardiac Disorders: Yes Hx Hypertension: Yes - PULMONARY Hx Respiratory Disorders: Yes Hx Asthma: Yes Hx Pneumonia: Yes Other/Comment: Smoking - NEUROLOGICAL Hx Neurological Disorder: No - HEENT Hx HEENT Problems: No - RENAL Hx Chronic Kidney Disease: No - ENDOCRINE/METABOLIC Hx Endocrine Disorders: No - HEMATOLOGICAL/ONCOLOGICAL Hx Blood Disorders: Yes Hx Hepatitis C: Yes - INTEGUMENTARY Hx Dermatological Problems: No - MUSCULOSKELETAL/RHEUMATOLOGICAL Hx Musculoskeletal Disorders: No Hx Falls: No - GASTROINTESTINAL Hx Gastrointestinal Disorders: No - GENITOURINARY/GYNECOLOGICAL Hx Genitourinary Disorders: No - PSYCHIATRIC Hx Psychophysiologic Disorder: No Hx Substance Use: No - SURGICAL HISTORY Hx Section: Yes Other/Comment: skin graft r shoulder as a child - ANESTHESIA Hx Anesthesia: Yes Hx Anesthesia Reactions: No Hx Malignant Hyperthermia: No Meds Allergies/Adverse Reactions: Allergies Allergy/AdvReac Type Severity Reaction Status Date / Time No Known Allergies Allergy Verified 10/12/17 17:02 Physical Exam - Constitutional Appears: Well, Non-toxic, No Acute Distress - Head Exam Head Exam: ATRAUMATIC, NORMAL INSPECTION, NORMOCEPHALIC - Eye Exam Eye Exam: EOMI, Normal appearance, PERRL - ENT Exam ENT Exam: Mucous Membranes Moist - Respiratory Exam Respiratory Exam: Clear to Auscultation Bilateral, NORMAL BREATHING PATTERN. absent: Rales, Rhonchi, Wheezes - Cardiovascular Exam Cardiovascular Exam: REGULAR RHYTHM, RRR, +S1, +S2. absent: Clicks, Gallop, Rubs - GI/Abdominal Exam GI & Abdominal Exam: Normal Bowel Sounds, Soft. absent: Distended, Firm, Guarding, Tenderness - Extremities Exam Extremities exam: Positive for: full ROM, normal inspection. Negative for: tenderness - Back Exam Back exam: absent: CVA tenderness (L), CVA tenderness (R) - Neurological Exam Neurological exam: Alert, CN II-XII Intact, Oriented x3 - Skin Skin Exam: Dry, Intact, Normal Color Results - Vital Signs Recent Vital Signs: Last Vital Signs Temp 98.0 F 09/26/18 12:18 Pulse 76 09/26/18 12:18 Resp 16 09/26/18 12:18 BP 157/84 H 09/26/18 12:18 Pulse Ox 98 09/26/18 12:18 - Labs Result Diagrams: 09/26/18 09:42 09/26/18 09:42 Labs: Laboratory Results - last 24 hr 09/26/18 09/26/18 09/26/18 09:42 09:42 09:42 WBC 6.2 RBC 5.09 Hgb 12.1 Hct 37.8 MCV 74.3 L MCH 23.8 L MCHC 32.0 RDW 14.4 Plt Count 325 MPV 10.7 Neut % (Auto) 45.1 L Lymph % (Auto) 39.4 H [place] % (Auto) 9.0 H Eos % (Auto) 5.4 H Baso % (Auto) 1.1 Lymph # (Auto) 2.5 [place] # (Auto) 0.6 Eos # (Auto) 0.3 Baso # (Auto) 0.07 Absolute Neuts (auto) 2.81 PT 11.8 INR 1.04 APTT 34.4 Sodium 140 Potassium 4.4 Chloride 105 Carbon Dioxide 28 Anion Gap 12 BUN 11 Creatinine 0.7 Est GFR ( Amer) > 60 Est GFR (Non-Af Amer) > 60 Random Glucose 102 Calcium 9.4 Total Bilirubin 0.6 AST 31 ALT 15 Alkaline Phosphatase 65 Lactate Dehydrogenase 501 Total Creatine Kinase 142 Troponin I < 0.01 NT-Pro-B Natriuret Pep Total Protein 8.0 Albumin 4.4 Globulin 3.6 Albumin/Globulin Ratio 1.2 09/26/18 09:42 WBC RBC Hgb Hct MCV MCH MCHC RDW Plt Count MPV Neut % (Auto) Lymph % (Auto) [place] % (Auto) Eos % (Auto) Baso % (Auto) Lymph # (Auto) [place] # (Auto) Eos # (Auto) Baso # (Auto) Absolute Neuts (auto) PT INR APTT Sodium Potassium Chloride Carbon Dioxide Anion Gap BUN Creatinine Est GFR ( Amer) Est GFR (Non-Af Amer) Random Glucose Calcium Total Bilirubin AST ALT Alkaline Phosphatase Lactate Dehydrogenase Total Creatine Kinase Troponin I NT-Pro-B Natriuret Pep 77.4 Total Protein Albumin Globulin Albumin/Globulin Ratio Assessment & Plan - Assessment and Plan (Free Text) Assessment: 57 year old female with past medical history of hypertension, treated hepatitis C, and treated tuberculosis 35 years ago presents with cough with fresh blood. Patient was admitted for rule out of tuberculosis. Plan: Bloody sputum 2/2 to tuberculosis vs. pneumonia -Patient has history of both tuberculosis and pneumonia -CXR is unchanged from 2015 -CTA shows no evidence of pulmonary embolus or significant effusion -No leukocytosis, currently afebrile -Ordered AFB sputumx3, quantiferon gamma to rule out tuberculosis -Ordered blood culture -Given zithromax 500 mg loading dose. Started zithromax 250 mg daily -Dr. Rizo, ID, consulted for further recommendations. COPD -No signs of consolidation on CXR, and thus likely has COPD contributing to symptoms of daily cough -Started duonebs 3 Q4PRN as patient currently has clear to auscultation lungs Hypertension -Started amlodipine 10 mg daily Tobacco abuse -Patient counseled regarding tobacco cessation -Started nicotine patch Chronic Low back pain -Started ibuprofen 600 mg Q6PRN for pain as patient takes naproxen at home -Started lidoderm patch PRN for severe pain GI prophylaxis: protonix 40 mg daily DVT prophylaxis: SCD Patient plan discussed with Dr. Holloway. - Date & Time Date: 09/26/18 Time: 16:30 <Emilia Holloway - Last Filed: 09/28/18 13:21> Results - Vital Signs Recent Vital Signs: Last Vital Signs Temp 97.0 F L 09/27/18 14:00 Pulse 63 09/27/18 14:00 Resp 20 09/27/18 14:00 BP 126/79 09/27/18 14:00 Pulse Ox 98 09/27/18 14:00 - Labs Result Diagrams: 09/28/18 07:30 09/28/18 07:30 Labs: Laboratory Results - last 24 hr 09/27/18 09/27/18 08:00 08:00 WBC 5.7 RBC 5.01 Hgb 12.1 Hct 37.0 MCV 73.9 L MCH 24.2 L MCHC 32.7 RDW 14.3 Plt Count 297 MPV 9.8 Neut % (Auto) 41.0 L Lymph % (Auto) 44.6 H [place] % (Auto) 7.7 H Eos % (Auto) 5.1 H Baso % (Auto) 1.6 Lymph # (Auto) 2.6 [place] # (Auto) 0.4 Eos # (Auto) 0.3 Baso # (Auto) 0.09 Absolute Neuts (auto) 2.36 Sodium 139 Potassium 4.0 Chloride 103 Carbon Dioxide 29 Anion Gap 11 BUN 11 Creatinine 0.7 Est GFR ( Amer) > 60 Est GFR (Non-Af Amer) > 60 Random Glucose 138 H Calcium 9.4 Phosphorus 3.9 Magnesium 1.9 Total Bilirubin 0.7 AST 22 ALT 16 Alkaline Phosphatase 67 Total Protein 7.9 Albumin 4.4 Globulin 3.6 Albumin/Globulin Ratio 1.2 Attending/Attestation - Attestation I have personally seen and examined this patient.: Yes I have fully participated in the care of the patient.: Yes I have reviewed all pertinent clinical information: Yes Notes (Text): 09/27/18 18:41 Attending note: Patient seen and examined with resident in ER. Patient is alert and awake. on respiratory isolation. complaining of cough with 2 episodes of bloody sputum. denies any fever. complaining of chills. not in any acute distress. Patient is a 57 year old female with past medical history of hypertension, treated hepatitis C, and treated tuberculosis 35 years ago presents with cough with fresh blood. She reports waking up this morning and coughing to remove sputum as she does daily but today for the first time. 1. Hemoptysis; Associated with bronchitis. Patient with long history of bronchitis/copd. started on duoneb. AFB x 3 ordered. Quantiferon ordered. ID evaluation requested. 2. COPD; continue duoneb and Zithromax. 3. active smoking: smoking cessation is strongly advised. upon discharge the patient will follow up with PMD .
[2018-09-26] MEDS ORDERED: Lidocaine 5% Patch TD PRN (16:39)
[2018-09-26 21:43] VITALS: BMI 27.4
[2018-09-26] MEDS ORDERED: Pneumococcal 23-Valent Vaccine IM ONE (21:44)
--- NOTE | 2018-09-26 21:48 | CARD ---
APPROVED REPORT Date of service: 09/26/2018 EKG Measurement Heart [id number] <Conclusion> Normal sinus rhythm Possible Left atrial enlargement Borderline ECG
[2018-09-27 08:40] LABS: BASO # 0.09 K/mm3 (0.0-2.0); BASO % 1.6 % (0.0-3.0); EOS # 0.3 (0.0-0.7); EOS % 5.1 % (1.5-5.0); HEMOGLOBIN 12.1 g/dL (12.0-16.0); LYMPH # 2.6 (1.2-3.4); LYMPH % 44.6 % (22.0-35.0); MEAN CELL VOLUME 73.9 fl (80.0-105.0); MEAN CORPUSCULAR HEMOGLOBIN 24.2 pg (25.0-35.0); MEAN CORPUSCULAR HGB CONC 32.7 g/dl (31.0-37.0); MEAN PLATELET VOLUME 9.8 fl (7.0-11.0); MONO # 0.4 (0.1-0.6); MONO % 7.7 % (1.0-6.0); RBC 5.01 10^6/uL (3.5-6.1); RED CELL DISTRIBUTION WIDTH 14.3 % (11.5-14.5); WHITE BLOOD COUNT 5.7 10^3/uL (4.5-11.0)
[2018-09-27 08:55] LABS: ALB/GLOB RATIO 1.2 (1.1-1.8); ALBUMIN 4.4 g/dL (3.0-4.8); ALT/SGPT 16 U/L (7-56); AST/SGOT 22 U/L (14-36); BLOOD UREA NITROGEN 11 mg/dL (7-21); CALCIUM 9.4 mg/dL (8.4-10.5); GFR NON-AFRICAN AMERICAN > 60
[2018-09-27] MEDS: Pantoprazole 40 mg EC Tab PO SCH (09:49)
--- NOTE | 2018-09-27 13:27 | CP.PCM.PN ---
<Gennaro Post - Last Filed: 09/27/18 13:21> Subjective - Date & Time of Evaluation Date of Evaluation: 09/27/18 Time of Evaluation: 13:21 - Subjective Subjective: Gennaro Post, PGY-1, Internal Medicine Progress Note for Dr. Holloway Patient seen and evaluated at bedside. Patient had no acute overnight events. Patient had one AFB sputum done this morning. Patient reports cough with sputum this morning, but denies hemoptysis. Patient continues to complains of night sweats. He denies any fevers, chills, nausea, vomiting, constipation, diarrhea, dysuria, hematuria. 12-point ROS was unremarkable except for what was mentioned above. Objective - Vital Signs/Intake and Output Vital Signs (last 24 hours): Temp Pulse Resp BP Pulse Ox 98 F 59 L 18 132/74 96 09/27/18 06:00 09/27/18 06:00 09/27/18 06:00 09/27/18 09:50 09/27/18 06:00 Intake and Output: 09/27/18 09/27/18 06:59 18:59 Intake Total 960 Balance 960 - Medications Medications: Current Medications Acetaminophen (Tylenol 325mg Tab) 650 mg PO Q6H PRN PRN Reason: Fever >100.4 F Albuterol/Ipratropium (Duoneb 3 Mg/0.5 Mg (3 Ml) Ud) 3 ml IH [id number] PRN PRN Reason: Shortness of Breath Last Admin: 09/27/18 08:00 Dose: 3 ml Amlodipine Besylate (Norvasc) 10 mg PO DAILY [facility] Last Admin: 09/27/18 09:50 Dose: 10 mg Azithromycin (Zithromax) 250 mg PO DAILY [facility]; Protocol Stop: 09/30/18 10:01 Last Admin: 09/27/18 09:50 Dose: 250 mg Ibuprofen (Motrin Tab) 600 mg PO Q6H PRN PRN Reason: Pain, moderate (4-7) Last Admin: 09/27/18 09:49 Dose: 600 mg Lidocaine (Lidoderm) 1 ea TD DAILY PRN PRN Reason: Pain, severe (8-10) Last Admin: 09/27/18 09:50 Dose: 1 ea Nicotine (Nicoderm Cq) 1 patch TD DAILY [facility] Last Admin: 09/27/18 09:49 Dose: 1 patch Pantoprazole Sodium (Protonix Ec Tab) 40 mg PO DAILY [facility] Last Admin: 09/27/18 09:49 Dose: 40 mg - Labs Labs: 09/27/18 08:00 09/27/18 08:00 PT 11.8 SECONDS (9.4-12.5) 09/26/18 09:42 INR 1.04 09/26/18 09:42 APTT 34.4 Seconds (26.9-38.3) 09/26/18 09:42 - Constitutional Appears: Well, Non-toxic, No Acute Distress - Head Exam Head Exam: ATRAUMATIC, NORMAL INSPECTION, NORMOCEPHALIC - Eye Exam Eye Exam: EOMI, Normal appearance, PERRL - ENT Exam ENT Exam: Mucous Membranes Moist - Respiratory Exam Respiratory Exam: Clear to Auscultation Bilateral, NORMAL BREATHING PATTERN. absent: Rales, Rhonchi, Wheezes - Cardiovascular Exam Cardiovascular Exam: REGULAR RHYTHM, RRR, +S1, +S2. absent: Clicks, Gallop, Rubs - GI/Abdominal Exam GI & Abdominal Exam: Normal Bowel Sounds, Soft. absent: Distended, Firm, Guarding, Tenderness - Extremities Exam Extremities exam: Positive for: full ROM, normal inspection. Negative for: tenderness - Back Exam Back exam: absent: CVA tenderness (L), CVA tenderness (R) - Neurological Exam Neurological exam: Alert, CN II-XII Intact, Oriented x3 - Skin Skin Exam: Dry, Intact, Normal Color Assessment and Plan - Assessment and Plan (Free Text) Assessment: 57 year old female with past medical history of hypertension, treated hepatitis C, and treated tuberculosis 35 years ago presents with cough with fresh blood. Patient was admitted for rule out of tuberculosis. Plan: Bloody sputum 2/2 to tuberculosis vs. pneumonia -Patient has history of both tuberculosis and pneumonia -CXR is unchanged from 2015 -CTA shows no evidence of pulmonary embolus or significant effusion -No leukocytosis, currently afebrile -Follow up AFB sputumx3, quantiferon gamma to rule out tuberculosis -Blood culture negative for 24 hours. -Given zithromax 500 mg loading dose upon admission. Continue zithromax 250 mg daily -Dr. Rizo, ID, consulted for further recommendations. COPD -No signs of consolidation on CXR, and thus likely has COPD contributing to symptoms of daily cough -Continue duonebs 3 Q4PRN as patient currently has clear to auscultation lungs Hypertension -Continue amlodipine 10 mg daily Tobacco abuse -Patient counseled regarding tobacco cessation -Continue nicotine patch Chronic Low back pain -Continue ibuprofen 600 mg Q6PRN for pain as patient takes naproxen at home -Continue lidoderm patch PRN for severe pain History of hepatitis C -Patient was treated appropriately. -Patient should follow up outpatient. GI prophylaxis: protonix 40 mg daily DVT prophylaxis: SCD Patient plan discussed with Dr. Holloway. <Emilia Holloway - Last Filed: 09/28/18 13:23> Objective - Vital Signs/Intake and Output Vital Signs (last 24 hours): Temp Pulse Resp BP Pulse Ox 97.6 F 63 19 119/78 98 09/28/18 06:00 09/28/18 06:00 09/28/18 06:00 09/28/18 10:26 09/28/18 06:00 Intake and Output: 09/28/18 09/28/18 06:59 18:59 Intake Total 960 360 Balance 960 360 - Medications Medications: Current Medications Acetaminophen (Tylenol 325mg Tab) 650 mg PO Q6H PRN PRN Reason: Fever >100.4 F Albuterol/Ipratropium (Duoneb 3 Mg/0.5 Mg (3 Ml) Ud) 3 ml IH [id number] PRN PRN Reason: Shortness of Breath Last Admin: 09/27/18 08:00 Dose: 3 ml Amlodipine Besylate (Norvasc) 10 mg PO DAILY [facility] Last Admin: 09/28/18 10:26 Dose: 10 mg Azithromycin (Zithromax) 250 mg PO DAILY [facility]; Protocol Stop: 09/30/18 10:01 Last Admin: 09/28/18 10:27 Dose: 250 mg Guaifenesin (Robitussin) 100 mg PO Q4H PRN PRN Reason: Cough Ibuprofen (Motrin Tab) 600 mg PO Q6H PRN PRN Reason: Pain, moderate (4-7) Last Admin: 09/27/18 20:03 Dose: 600 mg Lidocaine (Lidoderm) 1 ea TD DAILY PRN PRN Reason: Pain, severe (8-10) Last Admin: 09/27/18 09:50 Dose: 1 ea Nicotine (Nicoderm Cq) 1 patch TD DAILY [facility] Last Admin: 09/28/18 10:27 Dose: 1 patch Pantoprazole Sodium (Protonix Ec Tab) 40 mg PO DAILY [facility] Last Admin: 09/28/18 10:27 Dose: 40 mg - Labs Labs: 09/28/18 07:30 09/28/18 07:30 PT 11.8 SECONDS (9.4-12.5) 09/26/18 09:42 INR 1.04 09/26/18 09:42 APTT 34.4 Seconds (26.9-38.3) 09/26/18 09:42 Attending/Attestation - Attestation I have personally seen and examined this patient.: Yes I have fully participated in the care of the patient.: Yes I have reviewed all pertinent clinical information, including history, physical exam and plan: Yes Notes (Text): 09/28/18 13:21 Attending note: Patient seen and examined with resident. Patient is alert and awake. on respiratory isolation. Denies any significant sputum production. denies any fever. complaining of chills. not in any acute distress. Patient is a 57 year old female with past medical history of hypertension, treated hepatitis C, and treated tuberculosis 35 years ago presents with cough with fresh blood. She reports waking up this morning and coughing to remove sputum as she does daily but today for the first time. 1. Hemoptysis; resolved. Associated with bronchitis. Patient with long history of bronchitis/copd. CT chest showed minimal groundglass interstitial infiltrates no significant consolidation. started on duoneb. AFB x 3 ordered. Quantiferon ordered. ID evaluation appreciated. 2. COPD; continue duoneb and Zithromax. 3. active smoking: smoking cessation is strongly advised. 4. Hypertension; continue amlodipine . Sputum for AFB sent. Pending results. Less likely tuberculous infection. upon discharge the patient will follow up with PMD . 09/28/18 13:23
[2018-09-27] MEDS ORDERED: guaiFENesin 100 mg/5 ml Syrup UD PO PRN (18:44)
--- NOTE | 2018-09-27 20:39 | CON ---
DATE: 09/27/2018 The patient is in bed, seen earlier this morning at 578, bed 1. CHIEF COMPLAINT: Coughing up blood times several days. HISTORY OF PRESENT ILLNESS: This is a 57-year-old female with a history of tuberculosis that was treated 35 years ago with history of hypertension, hepatitis C, end-stage COPD, asthma. The patient is a long-time smoker, continues to be a smoker, now admitted with cough. She denied any fevers and chills. She states she has had tuberculosis in the past. She knows what it feels like, but this is not tuberculosis. She denies any chest pain. There is the usual shortness of breath. Her cough is worse than usual. There is a hemoptysis. No abdominal pain, diarrhea or constipation. No bright red blood per rectum. No melena. No headaches or blurred vision. REVIEW OF SYSTEMS: Reveals 12-point review of systems performed. PAST MEDICAL HISTORY: Significant for tuberculosis that was treated 35 years ago, hypertension, hepatitis C, end-stage COPD and asthma. PAST SURGICAL HISTORY: Significant for C section. ALLERGIES: The patient has no known allergies to any medications. HOME MEDICATIONS: Include Norvasc. PHYSICAL EXAMINATION: VITAL SIGNS: On exam, the patient is in bed with a temperature of 97 and blood pressure is 127/80, respiratory rate of 18, and heart rate of 68. HEENT: Unremarkable. NECK: Supple. LUNGS: Have decreased breath sounds. HEART: Normal S1, S2. ABDOMEN: Soft, nontender. LABORATORY EXAMINATION: Reveals a white count of 6.2, hemoglobin of 12, platelets of 325; 45%. Chemistries reveals a BUN of 11 and creatinine of 0.7. CAT scan shows no PE. There is no consolidation. Chest x-ray is negative. QTc is 436. ASSESSMENT/PLAN: A 57-year-old female with probable exacerbation of COPD. I doubt tuberculosis current. We will continue her p.o. Zithromax and we will order an HIV test because of her age, and we will follow with you. Alfredo Grace MD
[2018-09-28 07:49] LABS: BASO # 0.1 K/mm3 (0.0-2.0); BASO % 1.9 % (0.0-3.0); EOS # 0.3 (0.0-0.7); EOS % 6.4 % (1.5-5.0); HEMOGLOBIN 12.2 g/dL (12.0-16.0); LYMPH # 2.4 (1.2-3.4); LYMPH % 45.4 % (22.0-35.0); MEAN CELL VOLUME 73.9 fl (80.0-105.0); MEAN CORPUSCULAR HEMOGLOBIN 23.9 pg (25.0-35.0); MEAN CORPUSCULAR HGB CONC 32.4 g/dl (31.0-37.0); MONO # 0.6 (0.1-0.6); MONO % 10.6 % (1.0-6.0); RBC 5.1 10^6/uL (3.5-6.1); RED CELL DISTRIBUTION WIDTH 14.1 % (11.5-14.5); WHITE BLOOD COUNT 5.3 10^3/uL (4.5-11.0)
[2018-09-28 08:17] LABS: ALB/GLOB RATIO 1.2 (1.1-1.8); ALBUMIN 4.2 g/dL (3.0-4.8); ALT/SGPT 6 U/L (7-56); AST/SGOT 22 U/L (14-36); BLOOD UREA NITROGEN 13 mg/dL (7-21); GFR NON-AFRICAN AMERICAN > 60
[2018-09-28] MEDS: Pantoprazole 40 mg EC Tab PO SCH (10:27)
--- NOTE | 2018-09-28 12:16 | CP.PCM.PN ---
<Gennaro Post - Last Filed: 09/28/18 12:11> Subjective - Date & Time of Evaluation Date of Evaluation: 09/28/18 Time of Evaluation: 12:11 - Subjective Subjective: Gennaro Post, PGY-1, Internal Medicine Progress Note for Dr. Holloway Patient seen and evaluated at bedside. Patient had no acute overnight events. Patient had third AFB sputum done this morning. Patient reports cough with sputum this morning, but denies hemoptysis. Patient continues to complains of night sweats but also day sweats. He denies any fevers, chills, nausea, vomiting, constipation, diarrhea, dysuria, hematuria. 12-point ROS was unremarkable except for what was mentioned above. Objective - Vital Signs/Intake and Output Vital Signs (last 24 hours): Temp Pulse Resp BP Pulse Ox 97.6 F 63 19 119/78 98 09/28/18 06:00 09/28/18 06:00 09/28/18 06:00 09/28/18 10:26 09/28/18 06:00 Intake and Output: 09/28/18 09/28/18 06:59 18:59 Intake Total 960 360 Balance 960 360 - Medications Medications: Current Medications Acetaminophen (Tylenol 325mg Tab) 650 mg PO Q6H PRN PRN Reason: Fever >100.4 F Albuterol/Ipratropium (Duoneb 3 Mg/0.5 Mg (3 Ml) Ud) 3 ml IH [id number] PRN PRN Reason: Shortness of Breath Last Admin: 09/27/18 08:00 Dose: 3 ml Amlodipine Besylate (Norvasc) 10 mg PO DAILY [facility] Last Admin: 09/28/18 10:26 Dose: 10 mg Azithromycin (Zithromax) 250 mg PO DAILY [facility]; Protocol Stop: 09/30/18 10:01 Last Admin: 09/28/18 10:27 Dose: 250 mg Guaifenesin (Robitussin) 100 mg PO Q4H PRN PRN Reason: Cough Ibuprofen (Motrin Tab) 600 mg PO Q6H PRN PRN Reason: Pain, moderate (4-7) Last Admin: 09/27/18 20:03 Dose: 600 mg Lidocaine (Lidoderm) 1 ea TD DAILY PRN PRN Reason: Pain, severe (8-10) Last Admin: 09/27/18 09:50 Dose: 1 ea Nicotine (Nicoderm Cq) 1 patch TD DAILY [facility] Last Admin: 09/28/18 10:27 Dose: 1 patch Pantoprazole Sodium (Protonix Ec Tab) 40 mg PO DAILY [facility] Last Admin: 09/28/18 10:27 Dose: 40 mg - Labs Labs: 09/28/18 07:30 09/28/18 07:30 PT 11.8 SECONDS (9.4-12.5) 09/26/18 09:42 INR 1.04 09/26/18 09:42 APTT 34.4 Seconds (26.9-38.3) 09/26/18 09:42 - Constitutional Appears: Well, Non-toxic, No Acute Distress - Head Exam Head Exam: ATRAUMATIC, NORMAL INSPECTION, NORMOCEPHALIC - Eye Exam Eye Exam: EOMI, Normal appearance, PERRL - ENT Exam ENT Exam: Mucous Membranes Moist - Respiratory Exam Respiratory Exam: Clear to Auscultation Bilateral, NORMAL BREATHING PATTERN. absent: Rales, Rhonchi, Wheezes - Cardiovascular Exam Cardiovascular Exam: REGULAR RHYTHM, RRR, +S1, +S2. absent: Clicks, Gallop, Rubs - GI/Abdominal Exam GI & Abdominal Exam: Normal Bowel Sounds, Soft. absent: Distended, Firm, Guarding, Tenderness - Extremities Exam Extremities exam: Positive for: full ROM, normal inspection. Negative for: tenderness - Back Exam Back exam: absent: CVA tenderness (L), CVA tenderness (R) - Neurological Exam Neurological exam: Alert, CN II-XII Intact, Oriented x3 - Skin Skin Exam: Dry, Intact, Normal Color Assessment and Plan - Assessment and Plan (Free Text) Assessment: 57 year old female with past medical history of hypertension, treated hepatitis C, and treated tuberculosis 35 years ago presents with cough with fresh blood. Patient was admitted for rule out of tuberculosis. Plan: Bloody sputum 2/2 to tuberculosis vs. pneumonia -Patient has history of both tuberculosis and pneumonia -CXR is unchanged from 2015 -CTA shows no evidence of pulmonary embolus or significant effusion -No leukocytosis, currently afebrile -HIV negative -Follow up AFB sputumx3, quantiferon gamma to rule out tuberculosis -Blood culture negative for 24 hours. -Given zithromax 500 mg loading dose upon admission. Continue zithromax 250 mg daily -Dr. Rizo, ID, consulted for further recommendations. COPD -No signs of consolidation on CXR, and thus likely has COPD contributing to symptoms of daily cough -Continue duonebs 3 Q4PRN as patient currently has clear to auscultation lungs Hypertension -Continue amlodipine 10 mg daily Tobacco abuse -Patient counseled regarding tobacco cessation -Continue nicotine patch Chronic Low back pain -Continue ibuprofen 600 mg Q6PRN for pain as patient takes naproxen at home -Continue lidoderm patch PRN for severe pain History of hepatitis C -Patient was treated appropriately. -Patient should follow up outpatient. GI prophylaxis: protonix 40 mg daily DVT prophylaxis: SCD Patient plan discussed with Dr. Holloway. <Emilia Holloway - Last Filed: 09/28/18 13:24> Objective - Vital Signs/Intake and Output Vital Signs (last 24 hours): Temp Pulse Resp BP Pulse Ox 97.6 F 63 19 119/78 98 09/28/18 06:00 09/28/18 06:00 09/28/18 06:00 09/28/18 10:26 09/28/18 06:00 Intake and Output: 09/28/18 09/28/18 06:59 18:59 Intake Total 960 360 Balance 960 360 - Medications Medications: Current Medications Acetaminophen (Tylenol 325mg Tab) 650 mg PO Q6H PRN PRN Reason: Fever >100.4 F Albuterol/Ipratropium (Duoneb 3 Mg/0.5 Mg (3 Ml) Ud) 3 ml IH [id number] PRN PRN Reason: Shortness of Breath Last Admin: 09/27/18 08:00 Dose: 3 ml Amlodipine Besylate (Norvasc) 10 mg PO DAILY [facility] Last Admin: 09/28/18 10:26 Dose: 10 mg Azithromycin (Zithromax) 250 mg PO DAILY [facility]; Protocol Stop: 09/30/18 10:01 Last Admin: 09/28/18 10:27 Dose: 250 mg Guaifenesin (Robitussin) 100 mg PO Q4H PRN PRN Reason: Cough Ibuprofen (Motrin Tab) 600 mg PO Q6H PRN PRN Reason: Pain, moderate (4-7) Last Admin: 09/27/18 20:03 Dose: 600 mg Lidocaine (Lidoderm) 1 ea TD DAILY PRN PRN Reason: Pain, severe (8-10) Last Admin: 09/27/18 09:50 Dose: 1 ea Nicotine (Nicoderm Cq) 1 patch TD DAILY [facility] Last Admin: 09/28/18 10:27 Dose: 1 patch Pantoprazole Sodium (Protonix Ec Tab) 40 mg PO DAILY [facility] Last Admin: 09/28/18 10:27 Dose: 40 mg - Labs Labs: 09/28/18 07:30 09/28/18 07:30 PT 11.8 SECONDS (9.4-12.5) 09/26/18 09:42 INR 1.04 09/26/18 09:42 APTT 34.4 Seconds (26.9-38.3) 09/26/18 09:42 Attending/Attestation - Attestation I have personally seen and examined this patient.: Yes I have fully participated in the care of the patient.: Yes I have reviewed all pertinent clinical information, including history, physical exam and plan: Yes Notes (Text): 09/28/18 13:24 Attending note: Patient seen and examined with resident. Patient is alert and awake. on respiratory isolation. Denies any significant sputum production. denies any fever. complaining of chills. not in any acute distress. Patient is a 57 year old female with past medical history of hypertension, treated hepatitis C, and treated tuberculosis 35 years ago presents with cough with fresh blood. She reports waking up this morning and coughing to remove sputum as she does daily but today for the first time. 1. Hemoptysis; resolved. Associated with bronchitis. Patient with long history of bronchitis/copd. CT chest showed minimal groundglass interstitial infiltrates no significant consolidation. started on duoneb. AFB x 3 ordered. Quantiferon ordered. ID evaluation appreciated. 2. COPD; continue duoneb and Zithromax. 3. active smoking: smoking cessation is strongly advised. 4. Hypertension; continue amlodipine . Sputum for AFB sent. Pending results. Possible discharge home if AFB is negative. upon discharge the patient will follow up with PMD .
--- NOTE | 2018-09-29 01:36 | PN ---
DATE: 09/28/2018 SUBJECTIVE: The patient is in bed, in no acute distress, nontoxic. No fevers or chills. PHYSICAL EXAMINATION: VITAL SIGNS: Temperature is 98, blood pressure is 116/70, respiratory rate of 18, heart rate of 75. HEENT: Unremarkable. NECK: Supple. LUNGS: Have decreased breath sounds. HEART: Normal S1 and S2. ABDOMEN: Soft, nontender. LABORATORY EXAMINATION: Reveals a white count of 5.3, BUN of 11, creatinine of 0.7. Serology for HIV is negative. Microbiology; the blood cultures have no growth, and the microbacteria no acid-fast is seen in two specimens on the AFB smear. ASSESSMENT AND PLAN: A 57-year-old female with a probable exacerbation of chronic obstructive pulmonary disease. This is not tuberculosis, you may discontinue the isolation and complete with a p.o. Zithromax. Chronic obstructive pulmonary disease management as per Pulmonary. Alfredo Grace MD
[2018-09-29 08:03] LABS: BASO # 0.07 K/mm3 (0.0-2.0); BASO % 1.4 % (0.0-3.0); EOS # 0.3 (0.0-0.7); EOS % 6.5 % (1.5-5.0); HEMOGLOBIN 11.8 g/dL (12.0-16.0); LYMPH # 2.1 (1.2-3.4); LYMPH % 42.2 % (22.0-35.0); MEAN CELL VOLUME 73.8 fl (80.0-105.0); MEAN CORPUSCULAR HEMOGLOBIN 23.5 pg (25.0-35.0); MEAN CORPUSCULAR HGB CONC 31.8 g/dl (31.0-37.0); MEAN PLATELET VOLUME 10.1 fl (7.0-11.0); MONO # 0.7 (0.1-0.6); MONO % 14.1 % (1.0-6.0); RBC 5.03 10^6/uL (3.5-6.1); RED CELL DISTRIBUTION WIDTH 14.1 % (11.5-14.5); WHITE BLOOD COUNT 5.1 10^3/uL (4.5-11.0)
[2018-09-29 08:26] LABS: ALB/GLOB RATIO 1.2 (1.1-1.8); ALBUMIN 4.2 g/dL (3.0-4.8); ALT/SGPT 11 U/L (7-56); AST/SGOT 23 U/L (14-36); BLOOD UREA NITROGEN 13 mg/dL (7-21); CALCIUM 9.1 mg/dL (8.4-10.5); GFR NON-AFRICAN AMERICAN > 60
[2018-09-29 08:48] VITALS: PULSE 62; RESP 18; TEMP 97.9; O2SAT 96
[2018-09-29] MEDS: Pantoprazole 40 mg EC Tab PO SCH (09:52)
[2018-09-29 09:53] VITALS: BP 115/76
--- NOTE | 2018-09-29 13:42 | CP.PCM.DIS ---
<Gennaro Post - Last Filed: 09/29/18 13:17> Provider - Provider Date of Admission: 09/26/18 14:13 Attending physician: Emilia Holloway MD Primary care physician: Oly Jorgensen MD Consults: 09/26/18 14:21 Infectious Disease Consult Routine Comment: Consulting Provider: Jose Rizo Consulting Physician: Jose Rizo Reason for Consult: h/o TB, hemoptysis 09/26/18 21:44 Inpatient PUBLIC HOUSING MANAGER Core Measures Referral Routine Comment: hemoptysis/dyspnea Physician Instructions: Reason For Exam: assess Respiratory Therapy Referral Routine Comment: smoker Physician Instructions: Reason For Exam: assess Transition In Care/Readmission Reduction Routine Comment: hemoptysis/ dyspnea Physician Instructions: Reason For Exam: assess Time Spent in preparation of Discharge (in minutes): 60 Hospital Course - Lab Results Lab Results: Micro Results 09/26/18 12:00 Blood Blood Culture - Preliminary NO GROWTH AFTER 3 DAYS 09/26/18 11:30 Blood Blood Culture - Preliminary NO GROWTH AFTER 3 DAYS 09/27/18 11:52 Unknown Mycobacterial Culture - Preliminary 09/27/18 09:44 Unknown Mycobacterial Culture - Preliminary Most Recent Lab Values WBC 5.1 10^3/uL (4.5-11.0) 09/29/18 07:40 RBC 5.03 10^6/uL (3.5-6.1) 09/29/18 07:40 Hgb 11.8 g/dL (12.0-16.0) L 09/29/18 07:40 Hct 37.1 % (36.0-48.0) 09/29/18 07:40 MCV 73.8 fl (80.0-105.0) L 09/29/18 07:40 MCH 23.5 pg (25.0-35.0) L 09/29/18 07:40 MCHC 31.8 g/dl (31.0-37.0) 09/29/18 07:40 RDW 14.1 % (11.5-14.5) 09/29/18 07:40 Plt Count 308 10^3/uL (120.0-450.0) 09/29/18 07:40 MPV 10.1 fl (7.0-11.0) 09/29/18 07:40 Neut % (Auto) 35.8 % (50.0-68.0) L 09/29/18 07:40 Lymph % (Auto) 42.2 % (22.0-35.0) H 09/29/18 07:40 Saline % (Auto) 14.1 % (1.0-6.0) H 09/29/18 07:40 Eos % (Auto) 6.5 % (1.5-5.0) H 09/29/18 07:40 Baso % (Auto) 1.4 % (0.0-3.0) 09/29/18 07:40 Lymph # (Auto) 2.1 (1.2-3.4) 09/29/18 07:40 Saline # (Auto) 0.7 (0.1-0.6) H 09/29/18 07:40 Eos # (Auto) 0.3 (0.0-0.7) 09/29/18 07:40 Baso # (Auto) 0.07 K/mm3 (0.0-2.0) 09/29/18 07:40 Absolute Neuts (auto) 1.81 (1.4-6.5) 09/29/18 07:40 PT 11.8 SECONDS (9.4-12.5) 09/26/18 09:42 INR 1.04 09/26/18 09:42 APTT 34.4 Seconds (26.9-38.3) 09/26/18 09:42 Sodium 139 mmol/L (132-148) 09/29/18 07:40 Potassium 4.3 mmol/L (3.6-5.0) 09/29/18 07:40 Chloride 104 mmol/L (98-107) 09/29/18 07:40 Carbon Dioxide 28 mmol/L (21-33) 09/29/18 07:40 Anion Gap 12 (10-20) 09/29/18 07:40 BUN 13 mg/dL (7-21) 09/29/18 07:40 Creatinine 0.7 mg/dl (0.7-1.2) 09/29/18 07:40 Est GFR ( Amer) > 60 09/29/18 07:40 Est GFR (Non-Af Amer) > 60 09/29/18 07:40 Random Glucose 101 mg/dL (70-110) 09/29/18 07:40 Calcium 9.1 mg/dL (8.4-10.5) 09/29/18 07:40 Phosphorus 3.9 mg/dL (2.5-4.5) 09/27/18 08:00 Magnesium 1.9 mg/dL (1.7-2.2) 09/27/18 08:00 Total Bilirubin 0.5 mg/dL (0.2-1.3) 09/29/18 07:40 AST 23 U/L (14-36) 09/29/18 07:40 ALT 11 U/L (7-56) 09/29/18 07:40 Alkaline Phosphatase 54 U/L (38-126) 09/29/18 07:40 Lactate Dehydrogenase 501 U/L (333-699) 09/26/18 09:42 Total Creatine Kinase 142 U/L (35-230) 09/26/18 09:42 Troponin I < 0.01 ng/mL 09/26/18 09:42 NT-Pro-B Natriuret Pep 77.4 pg/mL (0-450) 09/26/18 09:42 Total Protein 7.6 g/dL (5.8-8.3) 09/29/18 07:40 Albumin 4.2 g/dL (3.0-4.8) 09/29/18 07:40 Globulin 3.4 gm/dL 09/29/18 07:40 Albumin/Globulin Ratio 1.2 (1.1-1.8) 09/29/18 07:40 HIV 1&2 Ag/Ab, 4th Gen Nonreactive (Nonreactive) 09/27/18 09:44 TB Test (QFT) Nil >8.00 IU/mL 09/26/18 19:37 TB Test Mitogen - Nil <0.00 IU/mL 09/26/18 19:37 TB Test Antigen - Nil <0.00 IU/mL 09/26/18 19:37 TB Test TB - Nil <0.00 IU/mL 09/26/18 19:37 TB Test (QFT) Indeterminate (Negative) H 09/26/18 19:37 - Hospital Course Hospital Course: Gennaro Post, PGY-1, Internal Medicine Discharge Summary for Dr. Holloway 57 year old female with past medical history of hypertension, treated hepatitis C, and treated tuberculosis 35 years ago presented with cough with fresh blood. She reported waking up this morning and coughing to remove sputum as she does daily but the day of presentation, she coughed [place] blood twice instead of sputum. However, after this episode, there was no more blood in her cough. She reported having tuberculosis 35 years ago and had been treated appropriately at that time. She follows up with a pickers material handlers on [facility] but did not remember the pickers material handlers's name. She has smoked 1 PPD for a "very long time". Patient had been admitted multiple times for recurrent pneumonia. Upon last admission for pneumonia in 2014, she was tested for TB due to night sweats which was found to be negative on AFB. Chest X ray had been unchanged from 2015. As patient was found have hemoptysis and had a history of tuberculosis, she was placed on airborne precautions and started on protocol to rule out tuberculosis. Chest X ray was unchanged from 2015. CTA showed no evidence of cavitary lesion or pulmonary embolism. Upon presentation, patient was afebrile and had no leukocytosis. Blood culture was ordered which was negative. AFB sputumx3 was ordered which was negative for the first 2 sputum cultures. Quantiferon gamma was found to be indeterminate. She was started on zithromax for possibility of pneumonia. Dr. Grace, Infectious Disease, doubted that patient had reactivation of tuberculosis and advised to continue zithromax for 5 days. Patient's hemoptysis stopped after the first day, but she continued to have cough with sputum. Patient was started on duonebs 3 Q4PRN for COPD and amlodipine 10 mg daily for hypertension. Patient was counseled regarding tobacco cessation and was given nicotine patches on discharge. Patient was given ibuprofen and lidoderm patch PRN for chronic low back pain. Due to two negative AFB sputum culture, patient was found to be stable and ready for discharge. Patient was told to follow up with PCP within 3-5 days and [employer]ers material [employer] within 1 week. Patient was told to take all medications as prescribed. Patient was told to return to the emergency department if she had any new or concerning symptoms. This is a brief summary of the events that transpired at the hospital. For more information, please refer to the hospital documentation. Discharge diagnoses Tuberculosis vs. Pneumonia COPD Hypertension Tobacco Abuse Chronic Low Back Pain - Date & Time of H&P Date of H&P: 04/30/19 Time of H&P: 16:14 Discharge Exam - Head Exam Head Exam: ATRAUMATIC, NORMAL INSPECTION, NORMOCEPHALIC - Eye Exam Eye Exam: EOMI, PERRL - Respiratory Exam Respiratory Exam: Clear to PA & Lateral, NORMAL BREATHING PATTERN. absent: Rales, Rhonchi, Wheezes - Cardiovascular Exam Cardiovascular Exam: REGULAR RHYTHM, RRR, +S1, +S2. absent: Clicks, Gallop, Rubs - GI/Abdominal Exam GI & Abdominal Exam: Normal Bowel Sounds, Soft. absent: Distended, Firm, Guarding, Tenderness - Extremities Exam Extremities exam: full ROM, normal capillary refill, normal inspection - Back Exam Back exam: FULL ROM, NORMAL INSPECTION - Neurological Exam Neurological exam: Alert, CN II-XII Intact, Normal Gait, Oriented x3 - Psychiatric Exam Psychiatric exam: Normal Affect, Normal Mood - Skin Skin Exam: Dry, Intact, Normal Color Discharge Plan - Discharge Medications Prescriptions: Azithromycin [Zithromax] 250 mg PO DAILY #2 tab Nicotine 21 mg/24 hr [Nicoderm Cq] 1 each TD DAILY #30 patch - Follow Up Plan Condition: FAIR Disposition: HOME/ ROUTINE Instructions: Shortness of Breath (Dyspnea) (DC), Acute Bronchitis, Cough, Adult (DC), Coughing up Blood, Quitting Smoking, Risk Factors for COPD, Drugs to Help You Stop Using Tobacco Additional Instructions: Please follow up with PCP within 3-5 days. Please follow up with Dr. Salinas, Pulmonology, within 1 week for pulmonary function tests and further evaluation Please take all medications as prescribed. Please return to the emergency department if you have any new or concerning symptoms. Referrals: Oly Jorgensen MD [Primary Care Provider] - Follow up with primary Lindsey Salinas MD [Staff Provider] - <Emilia Holloway - Last Filed: 09/29/18 14:13> Provider - Provider Date of Admission: 09/26/18 14:13 Attending physician: Emilia Holloway MD Primary care physician: Oly Jorgensen MD Consults: 09/26/18 14:21 Infectious Disease Consult Routine Comment: Consulting Provider: Jose Rizo Consulting Physician: Jose Rizo Reason for Consult: h/o TB, hemoptysis 09/26/18 21:44 Inpatient PUBLIC HOUSING MANAGER Core Measures Referral Routine Comment: hemoptysis/dyspnea Physician Instructions: Reason For Exam: assess Respiratory Therapy Referral Routine Comment: smoker Physician Instructions: Reason For Exam: assess Transition In Care/Readmission Reduction Routine Comment: hemoptysis/ dyspnea Physician Instructions: Reason For Exam: assess Hospital Course - Lab Results Lab Results: Micro Results 09/26/18 12:00 Blood Blood Culture - Preliminary NO GROWTH AFTER 3 DAYS 09/26/18 11:30 Blood Blood Culture - Preliminary NO GROWTH AFTER 3 DAYS 09/27/18 11:52 Unknown Mycobacterial Culture - Preliminary 09/27/18 09:44 Unknown Mycobacterial Culture - Preliminary Most Recent Lab Values WBC 5.1 10^3/uL (4.5-11.0) 09/29/18 07:40 RBC 5.03 10^6/uL (3.5-6.1) 09/29/18 07:40 Hgb 11.8 g/dL (12.0-16.0) L 09/29/18 07:40 Hct 37.1 % (36.0-48.0) 09/29/18 07:40 MCV 73.8 fl (80.0-105.0) L 09/29/18 07:40 MCH 23.5 pg (25.0-35.0) L 09/29/18 07:40 MCHC 31.8 g/dl (31.0-37.0) 09/29/18 07:40 RDW 14.1 % (11.5-14.5) 09/29/18 07:40 Plt Count 308 10^3/uL (120.0-450.0) 09/29/18 07:40 MPV 10.1 fl (7.0-11.0) 09/29/18 07:40 Neut % (Auto) 35.8 % (50.0-68.0) L 09/29/18 07:40 Lymph % (Auto) 42.2 % (22.0-35.0) H 09/29/18 07:40 Saline % (Auto) 14.1 % (1.0-6.0) H 09/29/18 07:40 Eos % (Auto) 6.5 % (1.5-5.0) H 09/29/18 07:40 Baso % (Auto) 1.4 % (0.0-3.0) 09/29/18 07:40 Lymph # (Auto) 2.1 (1.2-3.4) 09/29/18 07:40 Saline # (Auto) 0.7 (0.1-0.6) H 09/29/18 07:40 Eos # (Auto) 0.3 (0.0-0.7) 09/29/18 07:40 Baso # (Auto) 0.07 K/mm3 (0.0-2.0) 09/29/18 07:40 Absolute Neuts (auto) 1.81 (1.4-6.5) 09/29/18 07:40 PT 11.8 SECONDS (9.4-12.5) 09/26/18 09:42 INR 1.04 09/26/18 09:42 APTT 34.4 Seconds (26.9-38.3) 09/26/18 09:42 Sodium 139 mmol/L (132-148) 09/29/18 07:40 Potassium 4.3 mmol/L (3.6-5.0) 09/29/18 07:40 Chloride 104 mmol/L (98-107) 09/29/18 07:40 Carbon Dioxide 28 mmol/L (21-33) 09/29/18 07:40 Anion Gap 12 (10-20) 09/29/18 07:40 BUN 13 mg/dL (7-21) 09/29/18 07:40 Creatinine 0.7 mg/dl (0.7-1.2) 09/29/18 07:40 Est GFR ( Amer) > 60 09/29/18 07:40 Est GFR (Non-Af Amer) > 60 09/29/18 07:40 Random Glucose 101 mg/dL (70-110) 09/29/18 07:40 Calcium 9.1 mg/dL (8.4-10.5) 09/29/18 07:40 Phosphorus 3.9 mg/dL (2.5-4.5) 09/27/18 08:00 Magnesium 1.9 mg/dL (1.7-2.2) 09/27/18 08:00 Total Bilirubin 0.5 mg/dL (0.2-1.3) 09/29/18 07:40 AST 23 U/L (14-36) 09/29/18 07:40 ALT 11 U/L (7-56) 09/29/18 07:40 Alkaline Phosphatase 54 U/L (38-126) 09/29/18 07:40 Lactate Dehydrogenase 501 U/L (333-699) 09/26/18 09:42 Total Creatine Kinase 142 U/L (35-230) 09/26/18 09:42 Troponin I < 0.01 ng/mL 09/26/18 09:42 NT-Pro-B Natriuret Pep 77.4 pg/mL (0-450) 09/26/18 09:42 Total Protein 7.6 g/dL (5.8-8.3) 09/29/18 07:40 Albumin 4.2 g/dL (3.0-4.8) 09/29/18 07:40 Globulin 3.4 gm/dL 09/29/18 07:40 Albumin/Globulin Ratio 1.2 (1.1-1.8) 09/29/18 07:40 HIV 1&2 Ag/Ab, 4th Gen Nonreactive (Nonreactive) 09/27/18 09:44 TB Test (QFT) Nil >8.00 IU/mL 09/26/18 19:37 TB Test Mitogen - Nil <0.00 IU/mL 09/26/18 19:37 TB Test Antigen - Nil <0.00 IU/mL 09/26/18 19:37 TB Test TB - Nil <0.00 IU/mL 09/26/18 19:37 TB Test (QFT) Indeterminate (Negative) H 09/26/18 19:37 Attending/Attestation - Attestation I have personally seen and examined this patient.: Yes I have fully participated in the care of the patient.: Yes I have reviewed all pertinent clinical information, including history, physical exam and plan: Yes Notes (Text): 09/29/18 14:12 Attending note: Patient seen and examined with resident. Patient is alert and awake. off respiratory isolation. Denies any significant sputum production. denies any fever. complaining of chills. not in any acute distress. Patient is a 57 year old female with past medical history of hypertension, treated hepatitis C, and treated tuberculosis 35 years ago presents with cough with fresh blood. She reports waking up this morning and coughing to remove sputum as she does daily but today for the first time. 1. Hemoptysis; resolved. Associated with bronchitis. Patient with long history of bronchitis/copd. CT chest showed minimal groundglass interstitial infiltrates no significant consolidation. started on duoneb. AFB x 2 is negative. Quantiferon ordered. ID evaluation appreciated. 2. COPD; continue duoneb and Zithromax. 3. active smoking: smoking cessation is strongly advised. Currently on NicoDerm patch. 4. Hypertension; continue amlodipine . Patient will be discharged home today with p.o. Zithromax. Continue NicoDerm patch. Advised to follow-up with pulmonary as outpatient. upon discharge the patient will follow up with PMD .
--- NOTE | 2018-09-29 15:34 | PN ---
DATE: 09/29/2018 SUBJECTIVE: The patient was seen early this morning. No fevers, no chills. No nausea. She is awake. PHYSICAL EXAMINATION: VITAL SIGNS: Temperature is 97, blood pressure is 120/70, respiratory rate of 18. HEENT: Unremarkable. NECK: Supple. LUNGS: Have decreased breath sounds. HEART: Normal S1 and S2. ABDOMEN: Soft. LABORATORY DATA: Laboratory examination reveals a white count of 5.1, hemoglobin 11, BUN of 13, creatinine of 0.7. Microbiology is noted. AFB is negative. ASSESSMENT AND PLAN: This is a 57-year-old female with probable exacerbation of chronic obstructive lung disease, this is not tuberculosis, may discontinue isolation with p.o. Zithromax, AFB smears are negative, and we will follow with you. Alfredo Grace MD
== END 2018-09-29 12:16 | disposition home or self-care (01) | DRG 99 ==
LOC: ED 08:17 → ERH 14:13 → 5RSO 17:39
PROVIDERS: ADMIT Internal Medicine; ATTEND Internal Medicine
DX: R04.2 Hemoptysis (principal); J44.1 Chronic obstructive pulmonary disease with (acute) exacerbation; F17.210 Nicotine dependence, cigarettes, uncomplicated; I10 Essential (primary) hypertension; M54.5 Low back pain; Z87.01 Personal history of pneumonia (recurrent); Z86.11 Personal history of tuberculosis; Z86.19 Personal history of other infectious and parasitic diseases